=== PATIENT | male | born 1965 | race African-American/Black ===

== ENCOUNTER 2024-09-06 10:44 | Outpatient (REF) | payer MEDICAID, SELFPAY ==
[2024-09-06 13:13] LABS: MANUAL DIFF FLAG NO
[2024-09-06 13:17] LABS: Basophils Percent Auto 0.5 % (0-2); Eosinophils Absolute Auto 0.4 X10*3/uL (0.0-0.4); Eosinophils Percent Auto 5.2 % (0-4); Hematocrit 40.3 % (42.0-52.0); Hemoglobin 12.1 g/dl (14.0-18.0); Imm Gran Abs Auto 0.06 X10*3/uL (0.00-0.03); Imm Gran Pct Auto 0.8 % (0.0-0.4); Lymphocytes Absolute Auto 1.6 X10*3/uL (1.2-4.9); Lymphocytes Percent Auto 20.8 % (20-40); Mean Corpuscular Hemoglobin 23.4 pg (27.0-33.0); Mean Corpuscular Volume 78.1 fL (80.0-98.0); Mean Platelet Volume 9.4 fL (9.4-12.4); Monocytes Absolute Auto 0.8 X10*3/uL (0.1-1.2); Monocytes Percent Auto 9.5 % (2-11); Neutrophils Percent Auto 63.2 % (45-73); Platelet Count 314 X10*3/uL (160-400); Red Blood Count 5.16 X10*6/uL (4.60-5.80); Red Cell Distribution Width 16.1 % (11.0-16.0); White Blood Count 7.9 X10*3/uL (4.8-10.8)
[2024-09-06 13:33] LABS: Estimated Average Glucose 143 mg/dL; Hemoglobin A1C 151.3804 umol/L; Hemoglobin A1c % 6.6 % (<6.0); Total Hemoglobin (HGBA1C) 3091.0623 umol/L
[2024-09-06 13:49] LABS: Alanine Aminotransferase 26 U/L (0-40); Albumin Level 4.3 g/dL (3.5-5.0); Alkaline Phosphatase 78 U/L (39-117); Anion Gap 10 (12-20); Aspartate Amino Transferase 27 U/L (5-37); Bilirubin Total 0.4 mg/dL (0.0-1.0); Blood Urea Nitrogen 14 mg/dL (9-16); Calcium 9.5 mg/dL (8.4-10.2); Carbon Dioxide 32 mmol/L (22-29); Chloride 104 mmol/L (96-108); Cholesterol 88 mg/dL (<200); Estimated Glomerular Filt Rate > 60; Glucose Random 114 mg/dL (60-115); HDL Cholesterol 31 mg/dL (>40); LDL Cholesterol Calculated 44 mg/dL (<100); Potassium 4.2 mmol/L (3.3-5.1); Sodium 142 mmol/L (135-145); Total Protein 8.1 g/dL (6.5-8.0); Triglycerides 65 mg/dL (<150)
[2024-09-06 14:03] LABS: Creatinine Urine 240.18 mg/dL
[2024-09-06 14:11] LABS: Ferritin 71 ng/mL (20-250)
== END 2024-09-06 10:45 | disposition home or self-care (01) ==
LOC: HO.10HDL 10:44
PROVIDERS: Visit Provider Internal Medicine
DX: Z00.01 Encounter for general adult medical examination with abnormal findings (principal); D50.8 Other iron deficiency anemias; E11.9 Type 2 diabetes mellitus without complications; E78.00 Pure hypercholesterolemia, unspecified; G47.33 Obstructive sleep apnea (adult) (pediatric); G89.29 Other chronic pain; L97.909 Non-pressure chronic ulcer of unspecified part of unspecified lower leg with unspecified severity
CPT/HCPCS: 36415; 80053; 80061; 82043; 82570; 82728; 83036; 84153; 85025

== ENCOUNTER 2024-12-06 10:07 | Outpatient (REF) | payer MEDICAID, SELFPAY ==
--- OUTSIDE RECORDS SUMMARY | 2024-12-06 11:29 | XMS_ITS ---
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 ([facility] V24, [facility] V28) 11/09/2024 Non-pressure chronic ulcer o f other part of left lower leg with fat layer exposed ([facility] V24, [facility] V28) 11/09/2024 Chronic venous hypertension (idiopathic) with ulcer of bilateral lower extremity (CODE) ([facility] V24, [facility] V28) 10/12/2024 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 10/13/2024 Goals Goal Patient Goal Type Associated Problems Recent Progress Patient-Stated? Author Decrease Wound Volume by X% by date (in notes) Care Plan Impaired Tissue Improving(03/2025 2:19 PM EDT) No Abiola Richter RN Patient and Caregiver Understand Wound Care Education Care Plan Impaired Tissue On track(04/08/2 025 2:19 PM EDT) Abiola Menendez RN Wound volume breakdown reduced by X% by week 4 Care Plan Impaired Tissue Abiola Menendez RN Wound volume breakdown reduced by X% by week 8 Care Plan Impaired Tissue Abiola Menendez RN Wound volume breakdown reduced by X% by week 12 Care Plan Impaired Tissue Abiola Menendez RN Quit using tobacco (cigarettes, smokeless, etc) Care Plan Education needed on impact of smoking on wound Abiola Menendez RN Reduce tobacco use (cigarettes, smokeless, etc) Care Plan Education needed on impact of smoking on wound Abiola Menendez RN Decrease Wound Volume by X% by date (in notes) Care Plan Education needed on impact of smoking on wound Abiola Menendez RN Patient and Caregiver Understand Wound Care Education Care Plan Education needed related to ulceration/compr omised skin integrity. Abiola Menendez RN Interventions Care Plan Interventions Intervention Entry Date Outcome Provide caregiver with wound care procedure information 10/13/2024 Educate caregiver on proper wound care procedures 10/13/2024 Give provider list of wound care supplies 10/13/2024 Refill wound care supplies 10/13/2024 Send Wound Care Supplies 10/13/2024 Give provider list of wound care supplies 10/13/2024 Refill wound care supplies 10/13/2024 Send Wound Care Supplies 10/13/2024 Provide caregiver with wound care procedure information 10/13/2024 Educate caregiver on proper wound care procedures 10/13/2024 Document patient eligibility for HBO 10/13/2024 Assess patient for HBO treatment 10/13/2024 Record wound depth 10/13/2024 Record total wound area 10/13/2024 Measure wound progress 10/13/2024 Create an action plan identifying patient strengths and supports 10/13/2024 Establish quit date with patient 10/13/2024 Discuss prior cessation attempts 10/13/2024 Discuss preferred method of cessation and plan 10/13/2024 Discuss barriers to smoking cessation 10/13/2024 Discuss smoking status with patient 10/13/2024 Create an action plan identifying patient strengths and supports 10/13/2024 Establish quit date with patient 10/13/2024 Discuss prior cessation attempts 10/13/2024 Discuss preferred method of cessation and plan 10/13/2024 Discuss barriers to smoking cessation 10/13/2024 Discuss smoking status with patient 10/13/2024 Provide caregiver with wound care procedure information 10/13/2024 Educate caregiver on proper wound care procedures 10/13/2024 Document patient eligibility for HBO 10/13/2024 Assess patient for HBO treatment 10/13/2024 Record wound depth 10/13/2024 Record total wound area 10/13/2024 Measure wound progress 10/13/2024 Provide caregiver with wound care procedure information 10/13/2024 Educate caregiver on proper wound care procedures 10/13/2024 Document patient eligibility for HBO 10/13/2024 Assess patient for HBO treatment 10/13/2024 Record wound depth 10/13/2024 Record total wound area 10/13/2024 Measure wound progress 10/13/2024 Provide caregiver with wound care procedure information 10/13/2024 Educate caregiver on proper wound care procedures 10/13/2024 Document patient eligibility for HBO 10/13/2024 Assess patient for HBO treatment 10/13/2024 Record wound depth 10/13/2024 Record total wound area 10/13/2024 Measure wound progress 10/13/2024 Provide caregiver with wound care procedure information 10/13/2024 Educate caregiver on proper wound care procedures 10/13/2024 Give provider list of wound care supplies 10/13/2024 Refill wound care supplies 10/13/2024 Give provider list of wound care supplies 10/13/2024 Refill wound care supplies 10/13/2024 Provide caregiver with wound care procedure information 10/13/2024 Educate caregiver on proper wound care procedures 10/13/2024 Record wound depth 10/13/2024 Record total wound area 10/13/2024 Measure wound progress 10/13/2024 Related Goals and Interventions Goal Associated Intervent ions Decrease Wound Volume by X% by date (in notes) Give provider list of wound care supplie s; Refill wound care supplies; Provide caregiver with wound care procedure information; Educate caregiver on proper wound care procedures; Record wound depth; Record total wound area; Measure wound progress Patient and Caregiver Unders tand Wound Care Education Provide caregiver with wound care proced ure information; Educate caregiver on proper wound care procedures; Give provider list of wound care supplies; Refill wound care supplies Wound volume breakdown reduc ed by X% by week 4 Provide caregiver with wound care proced ure information; Educate caregiver on proper wound care procedures; Document patient eligibility for HBO; Assess patient for HBO treatment; Record wound depth; Record total wound area; Measure wound progress Wound volume breakdown reduc ed by X% by week 8 Provide caregiver with wound care proced ure information; Educate caregiver on proper wound care procedures; Document patient eligibility for HBO; Assess patient for HBO treatment; Record wound depth; Record total wound area; Measure wound progress Wound volume breakdown reduc ed by X% by week 12 Provide caregiver with wound care proced ure information; Educate caregiver on proper wound care procedures; Document patient eligibility for HBO; Assess patient for HBO treatment; Record wound depth; Record total wound area; Measure wound progress Quit using tobacco (cigarett es, smokeless, etc) Create an action plan identifying patien t strengths and supports; Establish quit date with patient; Discuss prior cessation attempts; Discuss preferred method of cessation and plan; Discuss barriers to smoking cessation; Discuss smoking status with patient Reduce tobacco use (cigarett es, smokeless, etc) Create an action plan identifying patien t strengths and supports; Establish quit date with patient; Discuss prior cessation attempts; Discuss preferred method of cessation and plan; Discuss barriers to smoking cessation; Discuss smoking status with patient Decrease Wound Volume by X% by date (in notes) Give provider list of wound care supplie s; Refill wound care supplies; Send Wound Care Supplies; Provide caregiver with wound care procedure information; Educate caregiver on proper wound care procedures; Document patient eligibility for HBO; Assess patient for HBO treatment; Record wound depth; Record total wound area; Measure wound progress Patient and Caregiver Unders tand Wound Care Education Provide caregiver with wound care proced ure information; Educate caregiver on proper wound care procedures; Give provider list of wound care supplies; Refill wound care supplies; Send Wound Care Supplies
--- OUTSIDE RECORDS SUMMARY | 2024-12-06 11:29 | XMS_ITS | Clinical Summary ---
Author Organization [address] [place] [address] Address [address] [place] [address] Phone Care Team Providers Care Tack Driller Name Role Phone Kavya Mckenzie MD Primary Care Provider [phone] Allergies Active Allergy Reactions Criticality Noted Date Comments Penicillins Itching,Rash 10/12/2024 Shellfish Derived Anaphylaxis High 10/12/2024 Medications acetaminophen (TYLENOL) 325 mg tablet Take 1 tablet (325 mg total) by mouth every 6 (six) hours if needed for mild pain. Active albuterol HFA (PROAIR HFA ; PROVENTIL HFA ; VENTOLIN HFA) 90 mcg/actuation inhaler Inhale 2 puffs by mouth every 6 (six) hours if needed for wheezing. Active amitriptyline (ELAVIL) 100 mg tablet Take by mouth at bedtime. Active atorvastatin (LIPITOR) 80 mg tablet Take 1 tablet (80 mg total) by mouth at bedtime. Active amitriptyline (ELAVIL) 25 mg tablet Take by mouth at bedtime. Active budesonide-form oteroL (SYMBICORT) 80-4.5 mcg/actuation inhaler Inhale 2 puffs by mouth 2 (two) times a day. Rinse mouth with water after use to reduce aftertaste and incidence of candidiasis. Do not swallow. Active celecoxib (CeleBREX) 200 mg capsule Take 1 capsule (200 mg total) by mouth 2 (two) times a day. Active cetaphil (CETAPHIL) cream Apply topically if needed for dry skin. Active cetirizine (ZyrTEC) 10 mg chewable tablet Chew 1 (one) time each day. Active furosemide (LASIX) 40 mg tablet Take 1 tablet (40 mg total) by mouth 2 (two) times a day. Active hydrALAZINE (APRESOLINE) 50 mg tablet Take 1 tablet (50 mg total) by mouth 3 (three) times a day. Active empagliflozin (Jardiance) 10 mg tablet Take 1 tablet (10 mg total) by mouth 1 (one) time each day. Active lactulose (CHRONULAC) solution Take 15 mL (10 g total) by mouth if needed for constipation. Active insulin glargine (LANTUS) 100 unit/mL injection Inject 15 Units under the skin 1 (one) time each day in the morning. Active losartan (COZAAR) 100 mg tablet Take 1 tablet (100 mg total) by mouth 1 (one) time each day. Active metFORMIN (GLUCOPHAGE) 1,000 mg tablet Take 1 tablet (1,000 mg total) by mouth 2 (two) times a day with meals. Active metoprolol tartrate (LOPRESSOR) 100 mg tablet Take 1 tablet (100 mg total) by mouth 1 (one) time each day. Active montelukast (SINGULAIR) 10 mg tablet Take 1 tablet (10 mg total) by mouth 1 (one) time each day. Active MORPHINE SULFATE ER PO Take 30 mg by mouth if needed (pain, as needed 2 tablets twice per day). Active tirzepatide (Mounjaro) 5 mg/0.5 mL injection Inject 0.5 mL (5 mg total) under the skin every 7 (seven) days. Active omeprazole (PriLOSEC) [address] capsule Take 2 capsules (20 mg total) by mouth 2 (two) times a day. Do not crush or chew. Active oxyCODONE (ROXICODONE) 10 mg immediate release tablet Take 1 tablet (10 mg total) by mouth if needed for severe pain (as needed BID). Active ascorbic acid (VITAMIN C) 500 mg CR capsule Take 1 capsule (500 mg total) by mouth 1 (one) time each day. Active cholecalciferol (VITAMIN D-3) 25 mcg (1,000 unit) tablet Take 1 tablet (1,000 Units total) by mouth 1 (one) time each day. Active Active Problems Problem Noted Date Diagnosed Date Non-pressure chronic ulcer o f other part of right lower leg with fat layer exposed (CMS/[facility] V24, CMS/[facility] V28) 11/09/2024 Non-pressure chronic ulcer o f other part of left lower leg with fat layer exposed (CMS/HCC V24, CMS/HCC V28) 11/09/2024 Chronic venous hypertension (idiopathic) with ulcer of bilateral lower extremity (CODE) (CMS/HCC V24, CMS/HCC V28) 10/12/2024 Non-pressure chronic ulcer o f right lower leg with fat layer exposed (CMS/HCC V24, CMS/HCC V28) 10/12/2024 Non-pressure chronic ulcer o f left lower leg with fat layer exposed (CMS/HCC V24, CMS/HCC V28) 10/12/2024 Type 2 diabetes mellitus wit h other skin ulcer (CODE) (CMS/HCC V24, CMS/HCC V28) 10/12/2024 Sarcoidosis Encounters Date Type Department Care Team Description 11/30/2024 2:45 PM EDT Office Visit [facility] [address] [place] [phone] Cy Hernández PA Chronic venous hypertension (idiopathic) with ulcer of bilateral lower extremity (CODE) (CMS/HCC V24, CMS/[facility] V28) (Primary Dx); Non-pressure chronic ulcer of other part of left lower leg with fat layer exposed (CMS/HCC V24, CMS/HCC V28); Non-pressure chronic ulcer of other part of right lower leg limited to breakdown of skin (CMS/HCC V24, CMS/HCC V28); Type 2 diabetes mellitus with other skin ulcer (CODE) (CMS/HCC V24, CMS/HCC V28) 11/23/2024 2:15 PM EDT Office Visit [facility] [address] [place] [phone] Cy Hernández PA Chronic venous hypertension (idiopathic) with ulcer of bilateral lower extremity (CODE) (CMS/HCC V24, CMS/HCC V28) (Primary Dx); Non-pressure chronic ulcer of other part of right lower leg with fat layer exposed (CMS/HCC V24, CMS/HCC V28); Non-pressure chronic ulcer of other part of left lower leg with fat layer exposed (CMS/HCC V24, CMS/HCC V28); Type 2 diabetes mellitus with other skin ulcer (CODE) (CMS/HCC V24, CMS/HCC V28) 11/16/2024 2:30 PM EDT Office Visit [facility] [address] [place] [phone] Cy Hrenández PA Chronic venous hypertension (idiopathic) with ulcer of bilateral lower extremity (CODE) (CMS/HCC V24, CMS/HCC V28) (Primary Dx); Non-pressure chronic ulcer of other part of right lower leg with fat layer exposed (CMS/HCC V24, CMS/HCC V28); Non-pressure chronic ulcer of other part of left lower leg with fat layer exposed (CMS/HCC V24, CMS/HCC V28); Type 2 diabetes mellitus with other skin ulcer (CODE) (CMS/HCC V24, CMS/HCC V28) 11/09/2024 2:45 PM EDT Office Visit [facility] [address] [place] [phone] Cy Hernández PA Chronic venous hypertension (idiopathic) with ulcer of bilateral lower extremity (CODE) (CMS/HCC V24, CMS/HCC V28) (Primary Dx); Non-pressure chronic ulcer of other part of right lower leg with fat layer exposed (CMS/HCC V24, CMS/HCC V28); Non-pressure chronic ulcer of other part of left lower leg with fat layer exposed (CMS/HCC V24, CMS/HCC V28); Type 2 diabetes mellitus with other skin ulcer (CODE) (CMS/HCC V24, CMS/HCC V28) 11/02/2024 2:30 PM EDT Office Visit [facility] [address] [place] [address] [phone] Cy Hernández PA Chronic venous hypertension (idiopathic) with ulcer of bilateral lower extremity (CODE) (CMS/HCC V24, CMS/HCC V28) (Primary Dx); Non-pressure chronic ulcer of other part of right lower leg with fat layer exposed (CMS/HCC V24, CMS/HCC V28); Non-pressure chronic ulcer of other part of left lower leg with fat layer exposed (CMS/HCC V24, CMS/HCC V28); Type 2 diabetes mellitus with other skin ulcer (CODE) (CMS/HCC V24, CMS/HCC V28) 10/19/2024 1:15 PM EST Office Visit [facility] [address] [place] [phone] Cy Hernández PA Chronic venous hypertension (idiopathic) with ulcer of bilateral lower extremity (CODE) ([facility] V24, [facility] V28) (Primary Dx); Non-pressure chronic ulcer of right lower leg with fat layer exposed ([facility] V24, [facility] V28); Non-pressure chronic ulcer of left lower leg with fat layer exposed ([facility] V24, [facility] V28); Type 2 diabetes mellitus with other skin ulcer (CODE) ([facility] V24, [facility] V28) 10/14/2024 12:50 PM EST - 10/14/2024 11:59 PM EST Hospital Encounter [facility] [address] [place] [phone] Polyosteoarthritis, unspecified Discharge Disposition: Home or Self Care 10/14/[address] [facility] [address] [place] [phone] Essie Schultz LPN start of [facility] services 10/12/2024 12:45 PM EST Office Visit [facility] [address] [place] [phone] Cy Hernández PA Chronic venous hypertension (idiopathic) with ulcer of bilateral lower extremity (CODE) ([facility] V24, [facility] V28) (Primary Dx); Non-pressure chronic ulcer of right lower leg with fat layer exposed ([facility] V24, [facility] V28); Non-pressure chronic ulcer of left lower leg with fat layer exposed ([facility] V24, [facility] V28); Type 2 diabetes mellitus with other skin ulcer (CODE) ([facility] V24, [facility] V28) from Last 3 Months Surgical History Surgery Date Site/Laterality Comments TOTAL KNEE ARTHROPLASTY Left BACK SURGERY Medical History Medical History Date Comments Asthma Diabetes mellitus ([facility] V24, [facility] V28) Hypertension Arthritis Sarcoidosis Hyperlipidemia Anemia DEANGELO (obstructive sleep apnea) Venous hypertension of both lower extremities GERD (gastroesophageal reflux disease) Cellulitis Edema Back pain Family History Medical History Relation Name Comments Diabetes Daughter Diabetes Maternal Grandmother Cancer Mother Cancer Sister Relation Name Status Comments Daughter Maternal Grandmother Mother Sister Social History Tobacco Use Types Packs/Day Years Used Date Smoking Tobacco: Former Cigarettes S tarted: 1996 Smokeless Tobacco: Never Tobacco Cessation:Counseling Given: Not Answered Alcohol Use Standard Drinks/Week Comments Yes 0 (1 standard drink = 0.6 oz pur e alcohol) social gaterings / holidays Sex and Gender Information Value Date Recorded Sex Assigned at Not on file Legal Sex Male 3:53 PM EST Gender Identity Not on file Sexual Orientation Not on file Obstetrics History Last Filed Vital Signs Vital Sign Reading Time Taken Comments Blood Pressure 161/91 11/30/2024 2:23 PM EDT Pulse 104 11/30/2024 2:23 PM EDT Temperature 36.1 ??C (96.9 ??F) 11/30/2024 2:03 PM ED T Respiratory Rate 20 11/30/2024 2:23 PM EDT Oxygen Saturation 98% 11/30/2024 2:23 PM EDT Inhaled Oxygen Concentration - - Weight 136 kg (300 lb) 10/12/2024 1:11 PM EST Height 185.4 cm (6' 1 ) 10/12/2024 1:11 PM EST Body Mass Index 39.58 10/12/2024 1:11 PM EST Plan of Treatment Upcoming Encounters Date Type Department Care Team (Late st Contact Info) Description 12/07/2024 2:45 PM EDT Clinical Support [facility] [address] [place] [phone] 01/03/2025 2:30 PM EDT Office Visit [facility] [place] [address] [place] [address] [phone] Jef Mcclendon MD [address] [facility] [address] [place] [address] Health Maintenance Due Date Last Done Comments Diabetes: Annual GFR (Glomerular Filtration Rate) 1967 Diabetes: Annual Foot Exam 1977 Diabetes: Annual Retina Eye Exam 1977 Hepatitis B Vaccines (1 of 3 - 19+ 3-dose series) 1986 Pneumococcal Vaccine: 50+ Years (2 of 2 - PCV) 05/30/2021 05/30/2020 Pneumococcal Vaccine: Pediatrics (0 to 5 Years) and At-Risk Patients (6 to 64 Years) (2 of 2 - PCV) 05/30/2021 05/30/2020 COVID-19 Vaccine (6 - season) 2024 07/04/2022, 12/26/2021, 08/13/2021, Additional history exists Cholesterol Screening (Lipid Panel) 09/07/2024 Colorectal Cancer Screening: Colonoscopy 09/07/2024 HIV Screening 09/07/2024 Hepatitis C Screening 09/07/2024 Social Influencers of Health Screening 09/07/2024 Diabetes: Annual Urine Albumin-Creatinine Ratio (uACR) 10/12/2024 Diabetes: Blood Sugar Control Test (HGBA1C) 10/12/2024 Influenza Vaccine (Season Ended) 2025 Depression Screening 10/12/2025 10/12/2024 DTaP,Tdap,and Td Vaccines (3 - Td or Tdap) 09/07/2034 09/07/2024, 01/10/2020 Zoster Vaccines Completed 09/25/2021, 07/20/2021 HIB Vaccines Aged Out No longer eligi ble based on patient's age to complete this topic HPV Vaccines Aged Out No longer eligi ble based on patient's age to complete this topic Hepatitis A Vaccines Aged Out No long er eligible based on patient's age to complete this topic IPV Vaccines Aged Out No longer eligi ble based on patient's age to complete this topic MMR Vaccines Aged Out No longer eligi ble based on patient's age to complete this topic Meningococcal ACWY Vaccine Aged Out N o longer eligible based on patient's age to complete this topic Meningococcal B Vaccine Aged Out No l onger eligible based on patient's age to complete this topic RSV Immunization Patients Under 20 months Aged Out No longer eligible based on patient's age to complete this topic Varicella Vaccines Aged Out No longer eligible based on patient's age to complete this topic Goals Goal Patient Goal Type Associated Problems Recent Progress Patient-Stated? Author Decrease Wound Volume by X% by date (in notes) Care Plan Impaired Tissue Improving(03/2025 2:19 PM EDT) No Abiola Richter RN Patient and Caregiver Understand Wound Care Education Care Plan Impaired Tissue On track( 025 2:19 PM EDT) Abiola Menendez RN [...] ulceration/compr omised skin integrity. Abiola Menendez RN Procedures Procedure Name Priority Date/Time Associated Diagnosis Comments DEBRIDEMENT Routine 11/30/2024 2:45 PM EDT Chronic venous hypertension (idiopathic) with ulcer of bilateral lower extremity (CODE) (CMS/HCC V24, CMS/HCC V28) Non-pressure chronic ulcer of other part of left lower leg with fat layer exposed (CMS/HCC V24, CMS/HCC V28) WOUND CARE PROCEDURE Routine 11/30/2024 2:16 PM EDT Chronic venous hypertension (idiopathic) with ulcer of bilateral lower extremity (CODE) (CMS/HCC V24, CMS/HCC V28) Non-pressure chronic ulcer of other part of left lower leg with fat layer exposed (CMS/HCC V24, CMS/HCC V28) WOUND CARE PROCEDURE Routine 11/23/2024 2:32 PM EDT Chronic venous hypertension (idiopathic) with ulcer of bilateral lower extremity (CODE) (CMS/HCC V24, CMS/HCC V28) Non-pressure chronic ulcer of other part of left lower leg with fat layer exposed (CMS/HCC V24, CMS/HCC V28) WOUND CARE PROCEDURE Routine 11/23/2024 2:31 PM EDT Chronic venous hypertension (idiopathic) with ulcer of bilateral lower extremity (CODE) (CMS/HCC V24, CMS/HCC V28) Non-pressure chronic ulcer of other part of right lower leg with fat layer exposed (CMS/HCC V24, CMS/HCC V28) DEBRIDEMENT Routine 11/23/2024 2:15 PM EDT Chronic venous hypertension (idiopathic) with ulcer of bilateral lower extremity (CODE) (CMS/HCC V24, CMS/HCC V28) Non-pressure chronic ulcer of other part of right lower leg with fat layer exposed (CMS/HCC V24, CMS/HCC V28) DEBRIDEMENT Routine 11/23/2024 2:15 PM EDT Chronic venous hypertension (idiopathic) with ulcer of bilateral lower extremity (CODE) (CMS/HCC V24, CMS/HCC V28) Non-pressure chronic ulcer of other part of left lower leg with fat layer exposed (CMS/HCC V24, CMS/HCC V28) WOUND CARE PROCEDURE Routine 11/16/2024 3:15 PM EDT Chronic venous hypertension (idiopathic) with ulcer of bilateral lower extremity (CODE) (CMS/HCC V24, CMS/HCC V28) Non-pressure chronic ulcer of other part of left lower leg with fat layer exposed (CMS/HCC V24, CMS/HCC V28) WOUND CARE PROCEDURE Routine 11/16/2024 3:15 PM EDT Chronic venous hypertension (idiopathic) with ulcer of bilateral lower extremity (CODE) (CMS/HCC V24, CMS/HCC V28) Non-pressure chronic ulcer of other part of right lower leg with fat layer exposed (CMS/HCC V24, CMS/HCC V28) DEBRIDEMENT Routine 11/16/2024 2:30 PM EDT Chronic venous hypertension (idiopathic) with ulcer of bilateral lower extremity (CODE) (CMS/HCC V24, CMS/HCC V28) Non-pressure chronic ulcer of other part of right lower leg with fat layer exposed (CMS/HCC V24, CMS/HCC V28) DEBRIDEMENT Routine 11/16/2024 2:30 PM EDT Chronic venous hypertension (idiopathic) with ulcer of bilateral lower extremity (CODE) (CMS/HCC V24, CMS/HCC V28) Non-pressure chronic ulcer of other part of left lower leg with fat layer exposed (CMS/HCC V24, CMS/HCC V28) WOUND CARE PROCEDURE Routine 11/09/2024 3:23 PM EDT Chronic venous hypertension (idiopathic) with ulcer of bilateral lower extremity (CODE) (CMS/HCC V24, CMS/HCC V28) Non-pressure chronic ulcer of other part of left lower leg with fat layer exposed (CMS/HCC V24, CMS/HCC V28) WOUND CARE PROCEDURE Routine 11/09/2024 3:22 PM EDT Chronic venous hypertension (idiopathic) with ulcer of bilateral lower extremity (CODE) (CMS/HCC V24, CMS/HCC V28) Non-pressure chronic ulcer of other part of right lower leg with fat layer exposed (CMS/HCC V24, CMS/HCC V28) DEBRIDEMENT Routine 11/09/2024 2:45 PM EDT Chronic venous hypertension (idiopathic) with ulcer of bilateral lower extremity (CODE) (CMS/HCC V24, CMS/HCC V28) Non-pressure chronic ulcer of other part of right lower leg with fat layer exposed (CMS/HCC V24, CMS/HCC V28) DEBRIDEMENT Routine 11/09/2024 2:45 PM EDT Chronic venous hypertension (idiopathic) with ulcer of bilateral lower extremity (CODE) (CMS/HCC V24, CMS/HCC V28) Non-pressure chronic ulcer of other part of left lower leg with fat layer exposed (CMS/HCC V24, CMS/HCC V28) DEBRIDEMENT Routine 11/02/2024 2:30 PM EDT Chronic venous hypertension (idiopathic) with ulcer of bilateral lower extremity (CODE) (CMS/HCC V24, CMS/HCC V28) Non-pressure chronic ulcer of other part of right lower leg with fat layer exposed (CMS/HCC V24, CMS/HCC V28) DEBRIDEMENT Routine 11/02/2024 2:30 PM EDT Chronic venous hypertension (idiopathic) with ulcer of bilateral lower extremity (CODE) (CMS/HCC V24, CMS/HCC V28) Non-pressure chronic ulcer of other part of left lower leg with fat layer exposed (CMS/HCC V24, CMS/HCC V28) WOUND CARE PROCEDURE Routine 11/02/2024 2:26 PM EDT Chronic venous hypertension (idiopathic) with ulcer of bilateral lower extremity (CODE) (CMS/HCC V24, CMS/HCC V28) Non-pressure chronic ulcer of other part of left lower leg with fat layer exposed (CMS/HCC V24, CMS/HCC V28) WOUND CARE PROCEDURE Routine 11/02/2024 2:25 PM EDT Chronic venous hypertension (idiopathic) with ulcer of bilateral lower extremity (CODE) (CMS/HCC V24, CMS/HCC V28) Non-pressure chronic ulcer of other part of right lower leg with fat layer exposed (CMS/HCC V24, CMS/HCC V28) WOUND CARE PROCEDURE Routine 10/19/2024 2:02 PM EST Chronic venous hypertension (idiopathic) with ulcer of bilateral lower extremity (CODE) (CMS/HCC V24, CMS/HCC V28) Non-pressure chronic ulcer of left lower leg with fat layer exposed (CMS/HCC V24, CMS/HCC V28) Type 2 diabetes mellitus with other skin ulcer (CODE) (CMS/HCC V24, CMS/HCC V28) WOUND CARE PROCEDURE Routine 10/19/2024 2:02 PM EST Chronic venous hypertension (idiopathic) with ulcer of bilateral lower extremity (CODE) (CMS/HCC V24, CMS/HCC V28) Non-pressure chronic ulcer of right lower leg with fat layer exposed (CMS/HCC V24, CMS/HCC V28) Type 2 diabetes mellitus with other skin ulcer (CODE) (CMS/HCC V24, CMS/HCC V28) DEBRIDEMENT Routine 10/19/2024 1:15 PM EST Chronic venous hypertension (idiopathic) with ulcer of bilateral lower extremity (CODE) (CMS/HCC V24, CMS/HCC V28) Non-pressure chronic ulcer of right lower leg with fat layer exposed (CMS/HCC V24, CMS/HCC V28) Type 2 diabetes mellitus with other skin ulcer (CODE) (CMS/HCC V24, CMS/HCC V28) DEBRIDEMENT Routine 10/19/2024 1:15 PM EST Chronic venous hypertension (idiopathic) with ulcer of bilateral lower extremity (CODE) (CMS/HCC V24, CMS/HCC V28) Non-pressure chronic ulcer of left lower leg with fat layer exposed (CMS/HCC V24, CMS/HCC V28) Type 2 diabetes mellitus with other skin ulcer (CODE) (CMS/HCC V24, CMS/HCC V28) XR HIP 2-3 VIEWS RIGHT Routine 10/14/2024 1:07 PM EST Polyosteoarthritis, unspecified WOUND CARE PROCEDURE Routine 10/12/2024 2:32 PM EST Chronic venous hypertension (idiopathic) with ulcer of bilateral lower extremity (CODE) (CMS/HCC V24, CMS/HCC V28) Non-pressure chronic ulcer of left lower leg with fat layer exposed (CMS/HCC V24, CMS/HCC V28) WOUND CARE PROCEDURE Routine 10/12/2024 2:32 PM EST Chronic venous hypertension (idiopathic) with ulcer of bilateral lower extremity (CODE) (CMS/HCC V24, CMS/HCC V28) Non-pressure chronic ulcer of right lower leg with fat layer exposed (CMS/HCC V24, CMS/HCC V28) CULTURE WOUND WITH GRAM STAIN Routine 10/12/2024 2:28 PM EST Chronic venous hypertension (idiopathic) with ulcer of bilateral lower extremity (CODE) (CMS/HCC V24, CMS/HCC V28) Non-pressure chronic ulcer of right lower leg with fat layer exposed (CMS/HCC V24, CMS/HCC V28) DEBRIDEMENT Routine 10/12/2024 12:45 PM EST Chronic venous hypertension (idiopathic) with ulcer of bilateral lower extremity (CODE) (CMS/HCC V24, CMS/HCC V28) Non-pressure chronic ulcer of right lower leg with fat layer exposed (CMS/HCC V24, CMS/HCC V28) DEBRIDEMENT Routine 10/12/2024 12:45 PM EST Chronic venous hypertension (idiopathic) with ulcer of bilateral lower extremity (CODE) (CMS/HCC V24, CMS/HCC V28) Non-pressure chronic ulcer of right lower leg with fat layer exposed (CMS/HCC V24, CMS/HCC V28) DEBRIDEMENT Routine 10/12/2024 12:45 PM EST Chronic venous hypertension (idiopathic) with ulcer of bilateral lower extremity (CODE) (CMS/HCC V24, CMS/HCC V28) Non-pressure chronic ulcer of left lower leg with fat layer exposed (CMS/HCC V24, CMS/HCC V28) from Last 3 Months Results * Debridement Venous Ulcer Left;Lateral;Lower Leg (11/30/2024 2:45 PM EDT) Narrative Angelo Wallace MD - 11/30/2024 2:45 PM EDT FIDELIA Prater ? 11/30/2024 ??2:23 PM Debridement Venous Ulcer Left;Lateral;Lower Leg Performed by: FIDELIA Prater Authorized by: FIDELIA Prater ??Associated wounds: Wound Venous Ulcer 10/12/24 Leg Left;Lateral;Lower Consent: ??Consent obtained: ??Verbal ??Consent given by: ??Patient ??Risks discussed: Yes ?? Time out: Immediately prior to the procedure a time out was called ?? Debridement Details: ??Performed by: ??PA ??Type: surgical ?Level: subcutaneous tissue ?Pain control: ??Lidocaine 4% ??Severity of Tissue Pre Debridement: ??Fat layer exposed ??Severity of Tissue Post Debridement: ??Fat layer exposed ??Time taken: ??11/30/2024 1:58 PM ??Length (cm): ??4.2 ??Width (cm): ??4 ??Depth (cm): ??0.1 ??Area (cm^2): ??16.8 ??Time taken: ??11/30/2024 1:59 PM ??Length (cm): ??4.2 ??Width (cm): ??4 ??Depth (cm): ??0.1 ??Percent Debrided (%): ??100 ??Surface Area (cm^2): ??16.8 ??Area Debrided (cm^2): ??16.8 ??Volume (cm^3): ??1.68 ??Tissue and other material debrided: dermis, epidermis and subcutaneous tissue ?Devitalized tissue debrided: biofilm, exudate, fibrin and slough ?Instrument: ??Curette ??Amount of bleeding: small ?Hemostasis obtained with: ??Pressure ??Procedural pain: ??0 ??Post-procedural pain: ??0 ??Response to treatment: ??Procedure was tolerated well us Cy MISTRY IN CLINIC/BEDSIDE ORDERABLE S Final Result * Wound Care Procedure Venous Ulcer Left;Lateral;Lower Leg (11/30/2024 2:16 PM EDT) Narrative Angelo Wallace MD - 11/30/2024 2:16 PM EDT FIDELIA Prater ? 11/30/2024 ??2:23 PM Wound Care Procedure Venous Ulcer Left;Lateral;Lower Leg Date/Time: 11/30/2024 2:16 PM Performed by: Era Cavazos RN Authorized by: FIDELIA Prater ??Associated wounds: Wound Venous Ulcer 10/12/24 Leg Left;Lateral;Lower Consent: ??Consent obtained: ??Verbal ??Consent given by: ??Patient ??Risks, benefits, and alternatives were discussed: yes ?Risks discussed: ??Infection and pain ??Alternatives discussed: ??Delayed treatment [place] protocol: ??Procedure explained and questions answered to patient or proxy's satisfaction: yes ?Relevant documents present and verified: yes ?Patient identity confirmed: ??Verbally with patient Sedation: ??Sedation type: ??None Anesthesia: ??Anesthesia method: ??None Procedure details: ??Indications: open wounds ?Wound location: ??Leg ??Leg location: ??L lower leg ??Wound age (days): ??>14 Dressing: ??Dressing: Coban 2 compression system. Post-procedure details: ??Procedure completion: ??Tolerated us Cy MISTRY IN CLINIC/BEDSIDE ORDERABLE S Final Result * Wound Care Procedure Venous Ulcer Left;Lateral;Lower Leg (11/23/2024 2:32 PM EDT) Narrative Angelo Wallace MD - 11/23/2024 2:32 PM EDT FIDELIA Prater ? 11/23/2024 ??2:45 PM Wound Care Procedure Venous Ulcer Left;Lateral;Lower Leg Date/Time: 11/23/2024 2:32 PM Performed by: Era Cavazos RN Authorized by: FIDELIA Prater ??Associated wounds: Wound Venous Ulcer 10/12/24 Leg Left;Lateral;Lower Consent: ??Consent obtained: ??Verbal ??Consent given by: ??Patient ??Risks, benefits, and alternatives were discussed: yes ?Risks discussed: ??Infection and pain ??Alternatives discussed: ??Delayed treatment [place] protocol: ??Procedure explained and questions answered to patient or proxy's satisfaction: yes ?Relevant documents present and verified: yes ?Patient identity confirmed: ??Verbally with patient Sedation: ??Sedation type: ??None Anesthesia: ??Anesthesia method: ??None Procedure details: ??Indications: open wounds ?Wound location: ??Leg ??Leg location: ??L lower leg ??Wound age (days): ??>14 Dressing: ??Dressing: Coban 2 compression system. Post-procedure details: ??Procedure completion: ??Tolerated us Cy MISTRY IN CLINIC/BEDSIDE ORDERABLE S Final Result * Wound Care Procedure Venous Ulcer (Cluster ) Right;Medial;Lower Leg (11/23/2024 2:31 PM EDT) Narrative Angelo Wallace MD - 11/23/2024 2:31 PM EDT FIDELIA Prater ? 11/23/2024 ??2:45 PM Wound Care Procedure Venous Ulcer (Cluster ) Right;Medial;Lower Leg Date/Time: 11/23/2024 2:31 PM Performed by: Era Cavazos RN Authorized by: FIDELIA Prater ??Associated wounds: Wound Venous Ulcer 10/12/24 Leg Right;Medial;Lower Consent: ??Consent obtained: ??Verbal ??Consent given by: ??Patient ??Risks, benefits, and alternatives were discussed: yes ?Risks discussed: ??Pain and infection ??Alternatives discussed: ??Delayed treatment [place] protocol: ??Procedure explained and questions answered to patient or proxy's satisfaction: yes ?Relevant documents present and verified: yes ?Test results available: yes ?Patient identity confirmed: ??Verbally with patient Sedation: ??Sedation type: ??None Anesthesia: ??Anesthesia method: ??None Procedure details: ??Indications: open wounds ?Wound location: ??Leg ??Leg location: ??R lower leg ??Wound age (days): ??>14 Dressing: ??Dressing: coban 2 compression system. Post-procedure details: ??Procedure completion: ??Tolerated us Cy MISTRY IN CLINIC/BEDSIDE ORDERABLE S Final Result * Debridement Venous Ulcer (Cluster ) Right;Medial;Lower Leg (11/23/2024 2:15 PM EDT) Narrative Angelo Wallace MD - 11/23/2024 2:15 PM EDT FIDELIA Prater ? 11/23/2024 ??2:45 PM Debridement Venous Ulcer (Cluster ) Right;Medial;Lower Leg Performed by: FIDELIA Prater Authorized by: FIDELIA Prater ??Associated wounds: Wound Venous Ulcer 10/12/24 Leg Right;Medial;Lower Consent: ??Consent obtained: ??Verbal ??Consent given by: ??Patient ??Risks discussed: Yes ?? Time out: Immediately prior to the procedure a time out was called ?? Debridement Details: ??Performed by: ??PA ??Type: surgical ?Level: subcutaneous tissue ?Pain control: ??Lidocaine 4% ??Severity of Tissue Pre Debridement: ??Fat layer exposed ??Severity of Tissue Post Debridement: ??Fat layer exposed ??Time taken: ??11/23/2024 2:16 PM ??Length (cm): ??2.1 (Cluster of 2) ??Width (cm): ??2.2 ??Depth (cm): ??0.1 ??Area (cm^2): ??4.62 ??Time taken: ??11/23/2024 2:17 PM ??Length (cm): ??2.1 ??Width (cm): ??2.2 ??Depth (cm): ??0.1 ??Percent Debrided (%): ??50 ??Surface Area (cm^2): ??4.62 ??Area Debrided (cm^2): ??2.31 ??Volume (cm^3): ??0.46 ??Tissue and other material debrided: dermis, epidermis and subcutaneous tissue ?Devitalized tissue debrided: biofilm and slough ?Instrument: ??Curette ??Amount of bleeding: none ?Hemostasis obtained with: ??Not applicable ??Procedural pain: ??0 ??Post-procedural pain: ??0 ??Response to treatment: ??Procedure was tolerated well us Cy MISTRY IN CLINIC/BEDSIDE ORDERABLE S Final Result * Debridement Venous Ulcer Left;Lateral;Lower Leg (11/23/2024 2:15 PM EDT) Narrative Angelo Wallace MD - 11/23/2024 2:15 PM EDT FIDELIA Prater ? 11/23/2024 ??2:45 PM Debridement Venous Ulcer Left;Lateral;Lower Leg Performed by: FIDELIA Prater Authorized by: FIDELIA Parter ??Associated wounds: Wound Venous Ulcer 10/12/24 Leg Left;Lateral;Lower Consent: ??Consent obtained: ??Verbal ??Consent given by: ??Patient ??Risks discussed: Yes ?? Time out: Immediately prior to the procedure a time out was called ?? Debridement Details: ??Performed by: ??PA ??Type: surgical ?Level: subcutaneous tissue ?Pain control: ??Lidocaine 4% ??Severity of Tissue Pre Debridement: ??Fat layer exposed ??Severity of Tissue Post Debridement: ??Fat layer exposed ??Time taken: ??11/23/2024 2:17 PM ??Length (cm): ??4.6 ??Width (cm): ??3.9 ??Depth (cm): ??0.1 ??Area (cm^2): ??17.94 ??Time taken: ??11/23/2024 2:18 PM ??Length (cm): ??4.6 ??Width (cm): ??3.9 ??Depth (cm): ??0.1 ??Percent Debrided (%): ??100 ??Surface Area (cm^2): ??17.94 ??Area Debrided (cm^2): ??17.94 ??Volume (cm^3): ??1.79 ??Tissue and other material debrided: dermis, epidermis and subcutaneous tissue ?Devitalized tissue debrided: biofilm and slough ?Instrument: ??Curette ??Amount of bleeding: small ?Hemostasis obtained with: ??Pressure ??Procedural pain: ??0 ??Post-procedural pain: ??0 ??Response to treatment: ??Procedure was tolerated well us Cy MISTRY IN CLINIC/BEDSIDE ORDERABLE S Final Result * Wound Care Procedure Venous Ulcer Left;Lateral;Lower Leg (11/16/2024 3:15 PM EDT) Narrative Angelo Wallace MD - 11/16/2024 3:15 PM EDT FIDELIA Prater ? 11/16/2024 ??3:43 PM Wound Care Procedure Venous Ulcer Left;Lateral;Lower Leg Date/Time: 11/16/2024 3:15 PM Performed by: Abiola Richter RN Authorized by: FIDELIA Prater ??Associated wounds: Wound Venous Ulcer 10/12/24 Leg Left;Lateral;Lower Consent: ??Consent obtained: ??Verbal ??Consent given by: ??Patient ??Risks, benefits, and alternatives were discussed: yes ?Risks discussed: ??Infection and pain ??Alternatives discussed: ??Delayed treatment [place] protocol: ??Procedure explained and questions answered to patient or proxy's satisfaction: yes ?Relevant documents present and verified: yes ?Patient identity confirmed: ??Verbally with patient Sedation: ??Sedation type: ??None Anesthesia: ??Anesthesia method: ??None Procedure details: ??Indications: open wounds ?Wound location: ??Leg ??Leg location: ??L lower leg ??Wound age (days): ??>14 Dressing: ??Dressing: Coban 2 compression system. Post-procedure details: ??Procedure completion: ??Tolerated us Cy MISTRY IN CLINIC/BEDSIDE ORDERABLE S Final Result * Wound Care Procedure Venous Ulcer (Cluster ) Right;Medial;Lower Leg (11/16/2024 3:15 PM EDT) Narrative Angelo Wallace MD - 11/16/2024 3:15 PM EDT FIDELIA Prater ? 11/16/2024 ??3:43 PM Wound Care Procedure Venous Ulcer (Cluster ) Right;Medial;Lower Leg Date/Time: 11/16/2024 3:15 PM Performed by: Abiola Richter RN Authorized by: FIDELIA Prater ??Associated wounds: Wound Venous Ulcer 10/12/24 Leg Right;Medial;Lower Consent: ??Consent obtained: ??Verbal ??Consent given by: ??Patient ??Risks, benefits, and alternatives were discussed: yes ?Risks discussed: ??Pain and infection ??Alternatives discussed: ??Delayed treatment [place] protocol: ??Procedure explained and questions answered to patient or proxy's satisfaction: yes ?Relevant documents present and verified: yes ?Test results available: yes ?Patient identity confirmed: ??Verbally with patient Sedation: ??Sedation type: ??None Anesthesia: ??Anesthesia method: ??None Procedure details: ??Indications: open wounds ?Wound location: ??Leg ??Leg location: ??R lower leg ??Wound age (days): ??>14 Dressing: ??Dressing: coban 2 compression system. Post-procedure details: ??Procedure completion: ??Tolerated us Cy MISTRY IN CLINIC/BEDSIDE ORDERABLE S Final Result * Debridement Venous Ulcer (Cluster ) Right;Medial;Lower Leg (11/16/2024 2:30 PM EDT) Narrative Angelo Wallace MD - 11/16/2024 2:30 PM EDT FIDELIA Prater ? 11/16/2024 ??3:43 PM Debridement Venous Ulcer (Cluster ) Right;Medial;Lower Leg Performed by: FIDELIA Prater Authorized by: FIDELIA Prater ??Associated wounds: Wound Venous Ulcer 10/12/24 Leg Right;Medial;Lower Consent: ??Consent obtained: ??Verbal ??Consent given by: ??Patient ??Risks discussed: Yes ?? Time out: Immediately prior to the procedure a time out was called ?? Debridement Details: ??Performed by: ??PA ??Type: surgical ?Level: subcutaneous tissue ?Pain control: ??Lidocaine 4% ??Severity of Tissue Pre Debridement: ??Fat layer exposed ??Severity of Tissue Post Debridement: ??Fat layer exposed ??Time taken: ??11/16/2024 3:08 PM ??Length (cm): ??1.8 (Cluster of 3) ??Width (cm): ??4 ??Depth (cm): ??0.1 ??Area (cm^2): ??7.2 ??Time taken: ??11/16/2024 3:09 PM ??Length (cm): ??1.8 ??Width (cm): ??4 ??Depth (cm): ??0.1 ??Percent Debrided (%): ??100 ??Surface Area (cm^2): ??7.2 ??Area Debrided (cm^2): ??7.2 ??Volume (cm^3): ??0.72 ??Tissue and other material debrided: dermis, epidermis and subcutaneous tissue ?Devitalized tissue debrided: biofilm and slough ?Instrument: ??Curette ??Amount of bleeding: none ?Hemostasis obtained with: ??Not applicable ??Procedural pain: ??0 ??Post-procedural pain: ??0 ??Response to treatment: ??Procedure was tolerated well us Cy MISTRY IN CLINIC/BEDSIDE ORDERABLE S Final Result * Debridement Venous Ulcer Left;Lateral;Lower Leg (11/16/2024 2:30 PM EDT) Narrative Angelo Wallace MD - 11/16/2024 2:30 PM EDT FIDELIA Prater ? 11/16/2024 ??3:43 PM Debridement Venous Ulcer Left;Lateral;Lower Leg Performed by: FIDELIA Prater Authorized by: FIDELIA Prater ??Associated wounds: Wound Venous Ulcer 10/12/24 Leg Left;Lateral;Lower Consent: ??Consent obtained: ??Verbal ??Consent given by: ??Patient ??Risks discussed: Yes ?? Time out: Immediately prior to the procedure a time out was called ?? Debridement Details: ??Performed by: ??PA ??Type: surgical ?Level: subcutaneous tissue ?Pain control: ??Lidocaine 4% ??Severity of Tissue Pre Debridement: ??Fat layer exposed ??Severity of Tissue Post Debridement: ??Fat layer exposed ??Time taken: ??11/16/2024 3:06 PM ??Length (cm): ??4.8 ??Width (cm): ??4.4 ??Depth (cm): ??0.1 ??Area (cm^2): ??21.12 ??Time taken: ??11/16/2024 3:07 PM ??Length (cm): ??4.8 ??Width (cm): ??4.4 ??Depth (cm): ??0.1 ??Percent Debrided (%): ??100 ??Surface Area (cm^2): ??21.12 ??Area Debrided (cm^2): ??21.12 ??Volume (cm^3): ??2.11 ??Tissue and other material debrided: dermis, epidermis and subcutaneous tissue ?Devitalized tissue debrided: biofilm and slough ?Instrument: ??Curette ??Amount of bleeding: none ?Hemostasis obtained with: ??Not applicable ??Procedural pain: ??0 ??Post-procedural pain: ??0 ??Response to treatment: ??Procedure was tolerated well us Cy MISTRY IN CLINIC/BEDSIDE ORDERABLE S Final Result * Wound Care Procedure Venous Ulcer Left;Lateral;Lower Leg (11/09/2024 3:23 PM EDT) Narrative Angelo Wallace MD - 11/09/2024 3:23 PM EDT FIDELIA Prater ? 11/09/2024 ??3:32 PM Wound Care Procedure Venous Ulcer Left;Lateral;Lower Leg Date/Time: 11/09/2024 3:23 PM Performed by: Era Cavazos RN Authorized by: FIDELIA Prater ??Associated wounds: Wound Venous Ulcer 10/12/24 Leg Left;Lateral;Lower Consent: ??Consent obtained: ??Verbal ??Consent given by: ??Patient ??Risks, benefits, and alternatives were discussed: yes ?Risks discussed: ??Infection and pain ??Alternatives discussed: ??Delayed treatment [place] protocol: ??Procedure explained and questions answered to patient or proxy's satisfaction: yes ?Relevant documents present and verified: yes ?Patient identity confirmed: ??Verbally with patient Sedation: ??Sedation type: ??None Anesthesia: ??Anesthesia method: ??None Procedure details: ??Indications: open wounds ?Wound location: ??Leg ??Leg location: ??L lower leg ??Wound age (days): ??>14 Dressing: ??Dressing: Coban 2 compression system. Post-procedure details: ??Procedure completion: ??Tolerated us Cy MISTRY IN CLINIC/BEDSIDE ORDERABLE S Final Result * Wound Care Procedure Venous Ulcer (Cluster ) Right;Medial;Lower Leg (11/09/2024 3:22 PM EDT) Narrative Angelo Wallace MD - 11/09/2024 3:22 PM EDT FIDELIA Prater ? 11/09/2024 ??3:32 PM Wound Care Procedure Venous Ulcer (Cluster ) Right;Medial;Lower Leg Date/Time: 11/09/2024 3:22 PM Performed by: Era Cavazos RN Authorized by: FIDELIA Prater ??Associated wounds: Wound Venous Ulcer 10/12/24 Leg Right;Medial;Lower Consent: ??Consent obtained: ??Verbal ??Consent given by: ??Patient ??Risks, benefits, and alternatives were discussed: yes ?Risks discussed: ??Pain and infection ??Alternatives discussed: ??Delayed treatment [place] protocol: ??Procedure explained and questions answered to patient or proxy's satisfaction: yes ?Relevant documents present and verified: yes ?Test results available: yes ?Patient identity confirmed: ??Verbally with patient Sedation: ??Sedation type: ??None Anesthesia: ??Anesthesia method: ??None Procedure details: ??Indications: open wounds ?Wound location: ??Leg ??Leg location: ??R lower leg ??Wound age (days): ??>14 Dressing: ??Dressing: coban 2 compression system. Post-procedure details: ??Procedure completion: ??Tolerated us Cy MISTRY IN CLINIC/BEDSIDE ORDERABLE S Final Result * Debridement Venous Ulcer (Cluster ) Right;Medial;Lower Leg (11/09/2024 2:45 PM EDT) Narrative Angelo Wallace MD - 11/09/2024 2:45 PM EDT FIDELIA Prater ? 11/09/2024 ??3:32 PM Debridement Venous Ulcer (Cluster ) Right;Medial;Lower Leg Performed by: FIDELIA Prater Authorized by: FIDELIA Prater ??Associated wounds: Wound Venous Ulcer 10/12/24 Leg Right;Medial;Lower Consent: ??Consent obtained: ??Verbal ??Consent given by: ??Patient ??Risks discussed: Yes ?? Time out: Immediately prior to the procedure a time out was called ?? Debridement Details: ??Performed by: ??PA ??Type: surgical ?Level: subcutaneous tissue ?Pain control: ??Lidocaine 4% ??Severity of Tissue Pre Debridement: ??Fat layer exposed ??Severity of Tissue Post Debridement: ??Fat layer exposed ??Time taken: ??11/09/2024 3:04 PM ??Length (cm): ??5 (Cluster of 5) ??Width (cm): ??5.4 ??Depth (cm): ??0.1 ??Area (cm^2): ??27 ??Time taken: ??11/09/2024 3:05 PM ??Length (cm): ??5 ??Width (cm): ??5.4 ??Depth (cm): ??0.1 ??Percent Debrided (%): ??55 ??Surface Area (cm^2): ??27 ??Area Debrided (cm^2): ??14.85 ??Volume (cm^3): ??2.7 ??Tissue and other material debrided: dermis, epidermis and subcutaneous tissue ?Devitalized tissue debrided: biofilm and slough ?Instrument: ??Curette ??Amount of bleeding: small ?Hemostasis obtained with: ??Silver nitrate and pressure ??Procedural pain: ??0 ??Post-procedural pain: ??0 ??Response to treatment: ??Procedure was tolerated well us Cy MISTRY IN CLINIC/BEDSIDE ORDERABLE S Final Result * Debridement Venous Ulcer Left;Lateral;Lower Leg (11/09/2024 2:45 PM EDT) Narrative Angelo Wallace MD - 11/09/2024 2:45 PM EDT FIDELIA Prater ? 11/09/2024 ??3:32 PM Debridement Venous Ulcer Left;Lateral;Lower Leg Performed by: FIDELIA Prater Authorized by: FIDELIA Prater ??Associated wounds: Wound Venous Ulcer 10/12/24 Leg Left;Lateral;Lower Consent: ??Consent obtained: ??Verbal ??Consent given by: ??Patient ??Risks discussed: Yes ?? Time out: Immediately prior to the procedure a time out was called ?? Debridement Details: ??Performed by: ??PA ??Type: surgical ?Level: subcutaneous tissue ?Pain control: ??Lidocaine 4% ??Severity of Tissue Pre Debridement: ??Fat layer exposed ??Severity of Tissue Post Debridement: ??Fat layer exposed ??Time taken: ??11/09/2024 3:03 PM ??Length (cm): ??4.7 ??Width (cm): ??4.3 ??Depth (cm): ??0.1 ??Area (cm^2): ??20.21 ??Time taken: ??11/09/2024 3:04 PM ??Length (cm): ??4.7 ??Width (cm): ??4.3 ??Depth (cm): ??0.1 ??Percent Debrided (%): ??100 ??Surface Area (cm^2): ??20.21 ??Area Debrided (cm^2): ??20.21 ??Volume (cm^3): ??2.02 ??Tissue and other material debrided: dermis, epidermis and subcutaneous tissue ?Devitalized tissue debrided: biofilm and slough ?Instrument: ??Curette ??Amount of bleeding: small ?Hemostasis obtained with: ??Silver nitrate and pressure ??Procedural pain: ??0 ??Post-procedural pain: ??0 ??Response to treatment: ??Procedure was tolerated well us Cy MISTRY IN CLINIC/BEDSIDE ORDERABLE S Final Result * Debridement Venous Ulcer (Cluster ) Right;Medial;Lower Leg (11/02/2024 2:30 PM EDT) Narrative Angelo Wallace MD - 11/02/2024 2:30 PM EDT FIDELIA Prater ? 11/02/2024 ??2:41 PM Debridement Venous Ulcer (Cluster ) Right;Medial;Lower Leg Performed by: FIDELIA Prater Authorized by: FIDELIA Prater ??Associated wounds: Wound Venous Ulcer 10/12/24 Leg Right;Medial;Lower Consent: ??Consent obtained: ??Verbal ??Consent given by: ??Patient ??Risks discussed: Yes ?? Time out: Immediately prior to the procedure a time out was called ?? Debridement Details: ??Performed by: ??PA ??Type: surgical ?Level: subcutaneous tissue ?Pain control: ??Lidocaine 4% ??Severity of Tissue Pre Debridement: ??Fat layer exposed ??Severity of Tissue Post Debridement: ??Fat layer exposed ??Time taken: ??11/02/2024 2:07 PM ??Length (cm): ??6.4 (Cluster of 8) ??Width (cm): ??8 ??Depth (cm): ??0.1 ??Area (cm^2): ??51.2 ??Time taken: ??11/02/2024 2:08 PM ??Length (cm): ??6.4 ??Width (cm): ??8 ??Depth (cm): ??0.1 ??Percent Debrided (%): ??50 ??Surface Area (cm^2): ??51.2 ??Area Debrided (cm^2): ??25.6 ??Volume (cm^3): ??5.12 ??Tissue and other material debrided: dermis, epidermis and subcutaneous tissue ?Devitalized tissue debrided: biofilm and slough ?Instrument: ??Curette ??Amount of bleeding: none ?Hemostasis obtained with: ??Not applicable ??Procedural pain: ??0 ??Post-procedural pain: ??0 ??Response to treatment: ??Procedure was tolerated well us Cy MISTRY IN CLINIC/BEDSIDE ORDERABLE S Final Result * Debridement Venous Ulcer Left;Lateral;Lower Leg (11/02/2024 2:30 PM EDT) Narrative Angelo Wallace MD - 11/02/2024 2:30 PM EDT FIDELIA Prater ? 11/02/2024 ??2:41 PM Debridement Venous Ulcer Left;Lateral;Lower Leg Performed by: FIDELIA Prater Authorized by: FIDELIA Prater ??Associated wounds: Wound Venous Ulcer 10/12/24 Leg Left;Lateral;Lower Consent: ??Consent obtained: ??Verbal ??Consent given by: ??Patient ??Risks discussed: Yes ?? Time out: Immediately prior to the procedure a time out was called ?? Debridement Details: ??Performed by: ??PA ??Type: surgical ?Level: subcutaneous tissue ?Pain control: ??Lidocaine 4% ??Severity of Tissue Pre Debridement: ??Fat layer exposed ??Severity of Tissue Post Debridement: ??Fat layer exposed ??Time taken: ??11/02/2024 2:08 PM ??Length (cm): ??4.7 ??Width (cm): ??4.1 ??Depth (cm): ??0.1 ??Area (cm^2): ??19.27 ??Time taken: ??11/02/2024 2:09 PM ??Length (cm): ??4.7 ??Width (cm): ??4.1 ??Depth (cm): ??0.1 ??Percent Debrided (%): ??100 ??Surface Area (cm^2): ??. ??Area Debrided (cm^2): ??. ??Volume (cm^3): ??1.93 ??Tissue and other material debrided: dermis, epidermis and subcutaneous tissue ?Devitalized tissue debrided: biofilm and slough ?Instrument: ??Curette ??Amount of bleeding: none ?Hemostasis obtained with: ??Not applicable ??Procedural pain: ??0 ??Post-procedural pain: ??0 ??Response to treatment: ??Procedure was tolerated well us Cy MISTRY IN CLINIC/BEDSIDE ORDERABLE S Final Result * Wound Care Procedure Venous Ulcer Left;Lateral;Lower Leg (11/02/2024 2:26 PM EDT) Narrative Angelo Wallace MD - 11/02/2024 2:26 PM EDT FIDELIA Prater ? 11/02/2024 ??2:41 PM Wound Care Procedure Venous Ulcer Left;Lateral;Lower Leg Date/Time: 11/02/2024 2:26 PM Performed by: Era Cavazos RN Authorized by: FIDELIA Prater ??Associated wounds: Wound Venous Ulcer 10/12/24 Leg Left;Lateral;Lower Consent: ??Consent obtained: ??Verbal ??Consent given by: ??Patient ??Risks, benefits, and alternatives were discussed: yes ?Risks discussed: ??Infection and pain ??Alternatives discussed: ??Delayed treatment [place] protocol: ??Procedure explained and questions answered to patient or proxy's satisfaction: yes ?Relevant documents present and verified: yes ?Patient identity confirmed: ??Verbally with patient Sedation: ??Sedation type: ??None Anesthesia: ??Anesthesia method: ??None Procedure details: ??Indications: open wounds ?Wound location: ??Leg ??Leg location: ??L lower leg ??Wound age (days): ??>14 Dressing: ??Dressing: Coban 2 compression system. Post-procedure details: ??Procedure completion: ??Tolerated us Cy MISTRY IN CLINIC/BEDSIDE ORDERABLE S Final Result * Wound Care Procedure Venous Ulcer (Cluster ) Right;Medial;Lower Leg (11/02/2024 2:25 PM EDT) Narrative Angelo Wallace MD - 11/02/2024 2:25 PM EDT FIDELIA Prater ? 11/02/2024 ??2:41 PM Wound Care Procedure Venous Ulcer (Cluster ) Right;Medial;Lower Leg Date/Time: 11/02/2024 2:25 PM Performed by: Era Cavazos RN Authorized by: FIDELIA Prater ??Associated wounds: Wound Venous Ulcer 10/12/24 Leg Right;Medial;Lower Consent: ??Consent obtained: ??Verbal ??Consent given by: ??Patient ??Risks, benefits, and alternatives were discussed: yes ?Risks discussed: ??Pain and infection ??Alternatives discussed: ??Delayed treatment [place] protocol: ??Procedure explained and questions answered to patient or proxy's satisfaction: yes ?Relevant documents present and verified: yes ?Test results available: yes ?Patient identity confirmed: ??Verbally with patient Sedation: ??Sedation type: ??None Anesthesia: ??Anesthesia method: ??None Procedure details: ??Indications: open wounds ?Wound location: ??Leg ??Leg location: ??R lower leg ??Wound age (days): ??>14 Dressing: ??Dressing: coban 2 compression system. Post-procedure details: ??Procedure completion: ??Tolerated us Cy MISTRY IN CLINIC/BEDSIDE ORDERABLE S Final Result * Wound Care Procedure Venous Ulcer Left;Lateral;Lower Leg (10/19/2024 2:02 PM EST) Narrative Angelo Wallace MD - 10/19/2024 2:02 PM EST FIDELIA Prater ? 10/19/2024 ??2:11 PM Wound Care Procedure Venous Ulcer Left;Lateral;Lower Leg Date/Time: 10/19/2024 2:02 PM Performed by: Era Cavazos RN Authorized by: FIDELIA Prater ??Associated wounds: Wound Venous Ulcer 10/12/24 Leg Left;Lateral;Lower Consent: ??Consent obtained: ??Verbal ??Consent given by: ??Patient ??Risks, benefits, and alternatives were discussed: yes ?Risks discussed: ??Infection and pain ??Alternatives discussed: ??Delayed treatment [place] protocol: ??Procedure explained and questions answered to patient or proxy's satisfaction: yes ?Relevant documents present and verified: yes ?Patient identity confirmed: ??Verbally with patient Sedation: ??Sedation type: ??None Anesthesia: ??Anesthesia method: ??None Procedure details: ??Indications: open wounds ?Wound location: ??Leg ??Leg location: ??L lower leg ??Wound age (days): ??>14 Dressing: ??Dressing: Coban 2 compression system. Post-procedure details: ??Procedure completion: ??Tolerated us Cy MISTRY IN CLINIC/BEDSIDE ORDERABLE S Final Result * Wound Care Procedure Venous Ulcer (Cluster ) Right;Medial;Lower Leg (10/19/2024 2:02 PM EST) Narrative Angelo Wallace MD - 10/19/2024 2:02 PM EST FIDELIA Prater ? 10/19/2024 ??2:11 PM Wound Care Procedure Venous Ulcer (Cluster ) Right;Medial;Lower Leg Date/Time: 10/19/2024 2:02 PM Performed by: Era Cavazos RN Authorized by: FIDELIA Prater ??Associated wounds: Wound Venous Ulcer 10/12/24 Leg Right;Medial;Lower Consent: ??Consent obtained: ??Verbal ??Consent given by: ??Patient ??Risks, benefits, and alternatives were discussed: yes ?Risks discussed: ??Pain and infection ??Alternatives discussed: ??Delayed treatment [place] protocol: ??Procedure explained and questions answered to patient or proxy's satisfaction: yes ?Relevant documents present and verified: yes ?Test results available: yes ?Patient identity confirmed: ??Verbally with patient Sedation: ??Sedation type: ??None Anesthesia: ??Anesthesia method: ??None Procedure details: ??Indications: open wounds ?Wound location: ??Leg ??Leg location: ??R lower leg ??Wound age (days): ??>14 Dressing: ??Dressing: coban 2 compression system. Post-procedure details: ??Procedure completion: ??Tolerated us Cy MISTRY IN CLINIC/BEDSIDE ORDERABLE S Final Result * Debridement Venous Ulcer (Cluster ) Right;Medial;Lower Leg (10/19/2024 1:15 PM EST) Narrative Angelo Wallace MD - 10/19/2024 1:15 PM EST FIDELIA Prater ? 10/19/2024 ??2:11 PM Debridement Venous Ulcer (Cluster ) Right;Medial;Lower Leg Performed by: FIDELIA Prater Authorized by: FIDELIA Prater ??Associated wounds: Wound Venous Ulcer 10/12/24 Leg Right;Medial;Lower Consent: ??Consent obtained: ??Verbal ??Consent given by: ??Patient ??Risks discussed: Yes ?? Time out: Immediately prior to the procedure a time out was called ?? Debridement Details: ??Performed by: ??PA ??Type: surgical ?Level: subcutaneous tissue ?Pain control: ??Lidocaine 4% ??Severity of Tissue Pre Debridement: ??Fat layer exposed ??Severity of Tissue Post Debridement: ??Fat layer exposed ??Time taken: ??10/19/2024 1:44 PM ??Length (cm): ??8.6 (Cluster of 10) ??Width (cm): ??8.7 ??Depth (cm): ??0.1 ??Area (cm^2): ??74.82 ??Time taken: ??10/19/2024 1:45 PM ??Length (cm): ??8.6 ??Width (cm): ??8.7 ??Depth (cm): ??0.1 ??Percent Debrided (%): ??50 ??Surface Area (cm^2): ??74.82 ??Area Debrided (cm^2): ??37.41 ??Volume (cm^3): ??7.48 ??Tissue and other material debrided: dermis, epidermis and subcutaneous tissue ?Devitalized tissue debrided: biofilm and slough ?Instrument: ??Curette ??Amount of bleeding: none ?Hemostasis obtained with: ??Not applicable ??Procedural pain: ??0 ??Post-procedural pain: ??0 ??Response to treatment: ??Procedure was tolerated well us Cy MISTRY IN CLINIC/BEDSIDE ORDERABLE S Final Result * Debridement Venous Ulcer Left;Lateral;Lower Leg (10/19/2024 1:15 PM EST) Narrative Angelo Wallace MD - 10/19/2024 1:15 PM EST FIDELIA Prater ? 10/19/2024 ??2:11 PM Debridement Venous Ulcer Left;Lateral;Lower Leg Performed by: FIDELIA Prater Authorized by: FIDELIA Prater ??Associated wounds: Wound Venous Ulcer 10/12/24 Leg Left;Lateral;Lower Consent: ??Consent obtained: ??Verbal ??Consent given by: ??Patient ??Risks discussed: Yes ?? Time out: Immediately prior to the procedure a time out was called ?? Debridement Details: ??Performed by: ??PA ??Type: surgical ?Level: subcutaneous tissue ?Pain control: ??Lidocaine 4% ??Severity of Tissue Pre Debridement: ??Fat layer exposed ??Severity of Tissue Post Debridement: ??Fat layer exposed ??Time taken: ??10/19/2024 1:42 PM ??Length (cm): ??4.4 ??Width (cm): ??4.3 ??Depth (cm): ??0.1 ??Area (cm^2): ??18.92 ??Time taken: ??10/19/2024 1:43 PM ??Length (cm): ??4 ??Width (cm): ??4.3 ??Depth (cm): ??0.1 ??Percent Debrided (%): ??100 ??Surface Area (cm^2): ??17.2 ??Area Debrided (cm^2): ??17.2 ??Volume (cm^3): ??1.72 ??Tissue and other material debrided: dermis, epidermis and subcutaneous tissue ?Devitalized tissue debrided: biofilm and slough ?Instrument: ??Curette ??Amount of bleeding: none ?Hemostasis obtained with: ??Not applicable ??Procedural pain: ??0 ??Post-procedural pain: ??0 ??Response to treatment: ??Procedure was tolerated well us Cy MISTRY IN CLINIC/BEDSIDE ORDERABLE S Final Result * XR Hip 2-3 Views Right (10/14/2024 1:07 PM EST) Anatomical Region Laterality Modality Lower Extremities, Hip Right Radiograp hic Imaging 10/15/2024 7:47 AM EST Impressions 10/15/2024 7:50 AM EST No fracture or dislocation. There is severe osteoarthritis of the right hip and moderate osteoarthritis of the left hip. 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 Code 21484 -------- FINAL REPORT -------- Dictated By: Chele Clinton Dictated Date: 10/15/2024 07:47 ET Assigned Physician: Chele Clinton Reviewed and Electronically Signed By: Chele Clinton Signed Date: 10/15/2024 07:50 ET Workstation ID: [id number] Transcribed By: Self Edit Transcribed Date: 10/15/2024 07:47 ET Narrative 10/15/2024 7:50 AM EST HISTORY: The patient is a 59-year-old male with pain in the right hip. No history of trauma is provided. FINDINGS: AP radiograph of the pelvis, along with coned-down AP and external rotation-abduction views of the right hip, are obtained. The study demonstrates no fracture, dislocation, or osteolytic or osteoblastic lesion. There is severe narrowing of the right hip joint space with [id number] appearance superiorly, sclerosis of the articular surfaces, marginal osteophytes, and subchondral cyst formation. These findings are consistent with severe osteoarthritis. There is also less severe narrowing of the left hip joint space with marginal osteophytes, consistent with moderate osteoarthritis. There is soft tissue calcification just lateral to the right hip joint consistent with calcific tendinitis and/or calcific bursitis. Surgical clips are present medial to the proximal right femur. Procedure Note Chele Clinton MD - 10/15/2024 HISTORY: The patient is a 59-year-old male with pain in the right hip. Nohistory of trauma is provided. FINDINGS: AP radiograph of the pelvis, along with coned-down AP andexternal rotation-abduction views of the right hip, are obtained. Thestudy demonstrates no fracture, dislocation, or osteolytic or osteoblasticlesion. There is severe narrowing of the right hip joint space [id number] appearance superiorly, sclerosis of the articular surfaces,marginal osteophytes, and subchondral cyst formation. These findings areconsistent with severe osteoarthritis. There is also less severe narrowingof the left hip joint space with marginal osteophytes, consistent withmoderate osteoarthritis. There is soft tissue calcification just lateralto the right hip joint consistent with calcific tendinitis and/or calcificbursitis. Surgical clips are present medial to the proximal right femur. IMPRESSION: No fracture or dislocation. There is severe osteoarthritis of the righthip and moderate osteoarthritis of the left hip. There is also evidence ofcalcific tendinitis and/or calcific bursitis of the right hip. Code 43196 -------- FINAL REPORT -------- Dictated By: Chele Clinton Dictated Date: 10/15/2024 07:47 ET Assigned Physician: Chele Clinton Reviewed and Electronically Signed By: Chele Clinton Signed Date: 10/15/2024 07:50 ET Workstation ID: [id number] Transcribed By: Self Edit Transcribed Date: 10/15/2024 07:47 ET us Kavya Mckenzie MD IMG XR PROCEDURES Final Resul t * Wound Care Procedure Venous Ulcer Left;Lateral;Lower Leg (10/12/2024 2:32 PM EST) Narrative Cy Hernández PA - 10/12/2024 2:32 PM EST FIDELIA Prater ? 10/12/2024 ??3:26 PM Wound Care Procedure Venous Ulcer Left;Lateral;Lower Leg Date/Time: 10/12/2024 2:32 PM Performed by: Era Cavazos RN Authorized by: FIDELIA Prater ??Associated wounds: Wound Venous Ulcer 10/12/24 Leg Left;Lateral;Lower Consent: ??Consent obtained: ??Verbal ??Consent given by: ??Patient ??Risks, benefits, and alternatives were discussed: yes ?Risks discussed: ??Infection and pain ??Alternatives discussed: ??Delayed treatment [place] protocol: ??Procedure explained and questions answered to patient or proxy's satisfaction: yes ?Relevant documents present and verified: yes ?Patient identity confirmed: ??Verbally with patient Sedation: ??Sedation type: ??None Anesthesia: ??Anesthesia method: ??None Procedure details: ??Indications: open wounds ?Wound location: ??Leg ??Leg location: ??L lower leg ??Wound age (days): ??>14 Dressing: ??Dressing: Coban 2 compression system. Post-procedure details: ??Procedure completion: ??Tolerated us Cy MISTRY IN CLINIC/BEDSIDE ORDERABLE S Final Result * Wound Care Procedure (10/12/2024 2:32 PM EST) Cy Garcia PA - 10/12/2024 2:32 PM EST FIDELIA Prater ? 10/12/2024 ??3:26 PM Wound Care Procedure Date/Time: 10/12/2024 2:32 PM Performed by: Era Cavazos RN Authorized by: FIDELIA Prater ??Associated wounds: Wound Venous Ulcer 10/12/24 Pretibial Right Wound Venous Ulcer 10/12/24 Leg Right;Medial;Lower Consent: ??Consent obtained: ??Verbal ??Consent given by: ??Patient ??Risks, benefits, and alternatives were discussed: yes ?Risks discussed: ??Pain and infection ??Alternatives discussed: ??Delayed treatment [place] protocol: ??Procedure explained and questions answered to patient or proxy's satisfaction: yes ?Relevant documents present and verified: yes ?Test results available: yes ?Patient identity confirmed: ??Verbally with patient Sedation: ??Sedation type: ??None Anesthesia: ??Anesthesia method: ??None Procedure details: ??Indications: open wounds ?Wound location: ??Leg ??Leg location: ??R lower leg ??Wound age (days): ??>14 Dressing: ??Dressing: coban 2 compression system. Post-procedure details: ??Procedure completion: ??Tolerated us Cy MISTRY IN CLINIC/BEDSIDE ORDERABLE S Final Result * (ABNORMAL) Culture wound with gram stain (10/12/2024 2:28 PM EST) Culture, Wound Escherichia coli(A) MUSHTAQ 10/16/2024 9:55 AM [facility] Comment: The organism value for this result has been updated. These results have been appended to the previously preliminary verified report. This is an edited result. Previous organism was Gram negative bacilli on 10/14/2024 at 1115 EST. Culture, Wound Proteus mirabilis(A) MUSHTAQ 10/16/2024 9:55 AM [facility] Comment: The organism value for this result has been updated. These results have been appended to the previously preliminary verified report. Edited result: Previously reported as Proteus species on 10/14/2024 at 1115 EST. Culture, Wound Enterococcus faecalis(A) MUSHTAQ 10/16/2024 9:55 AM [facility] Comment: The organism value for this result has been updated. These results have been appended to the previously preliminary verified report. This is an edited result. Previous organism was Streptococcus Gamma non hemolytic on 10/15/2024 at 1143 EST. Culture, Wound Streptococcus beta-hemolytic Group B(A) MUSHTAQ 10/16/2024 9:55 AM [facility] Comment: Susceptibility testing is not routinely performed for Beta Streptococcus isolates since these organisms are predictably sensitive to Penicillin. If the Patient is not responding, is allergic to Penicillin, or further therapeutic information is requir ed, please consult an Infectious Disease Specialist. The organism value for this result has been updated. These results have been appended to the previously preliminary verified report. Gram Stain Result Rare Polymorphonuclear leukocytes 10/16/2024 9:55 AM [facility] Gram Stain Result No epithelial cells seen 10/16/2024 9:55 AM EST [facility] Gram Stain Result No organisms seen 10/16/2024 9:55 AM EST [facility] Swab Structure of right lower limb / Unknown Non-blood Collection / Unknown 10/12/2024 2:28 PM EST 10/12/2024 3:52 PM EST Narrative Organism Antibiotic Method Susceptibility Escherichia coli Amoxicillin/Clavulanate MUSHTAQ <=2 ug/ml: Susceptible Escherichia coli Ampicillin/Sulbactam MUSHTAQ <=2 ug/ml: Susceptible Escherichia coli Piperacillin/Tazobactam MUSHTAQ <=4 ug/ml: Susceptible Escherichia coli Cefazolin (Other) MUSHTAQ <=1 ug/ml: Susceptible Escherichia coli Cefoxitin MUSHTAQ <=4 ug/ml: Susceptible Escherichia coli Ceftazidime MUSHTAQ <=0.5 ug/ml: Susceptible Escherichia coli Ceftriaxone MUSHTAQ <=0.25 ug/ml: Susceptible Escherichia coli Cefepime MUSHTAQ <=0.12 ug/ml: Susceptible Escherichia coli Meropenem MUSHTAQ <=0.25 ug/ml: Susceptible Escherichia coli Amikacin MUSHTAQ 2 ug/ml: Susceptible Escherichia coli Gentamicin MUSHTAQ <=1 ug/ml: Susceptible Escherichia coli Ciprofloxacin MUSHTAQ <=0.06 ug/ml: Susceptible Escherichia coli Levofloxacin MUSHTAQ <=0.12 ug/ml: Susceptible Escherichia coli Trimethoprim/Sulfamethoxazole MUSHTAQ <=20 ug/ml: Susceptible Proteus mirabilis Amoxicillin/Clavulanate MUSHTAQ <=2 ug/ml: Susceptible Proteus mirabilis Ampicillin/Sulbactam MUSHTAQ <=2 ug/ml: Susceptible Proteus mirabilis Piperacillin/Tazobactam MUSHTAQ <=4 ug/ml: Susceptible Proteus mirabilis Cefazolin (Other) MUSHTAQ 4 ug/ml: Intermediate Proteus mirabilis Cefoxitin MUSHTAQ <=4 ug/ml: Susceptible Proteus mirabilis Ceftazidime MUSHTAQ <=0.5 ug/ml: Susceptible Proteus mirabilis Ceftriaxone MUSHTAQ <=0.25 ug/ml: Susceptible Proteus mirabilis Cefepime MUSHTAQ <=0.12 ug/ml: Susceptible Proteus mirabilis Meropenem MUSHTAQ <=0.25 ug/ml: Susceptible Proteus mirabilis Amikacin MUSHTAQ 4 ug/ml: Susceptible Proteus mirabilis Gentamicin MUSHTAQ <=1 ug/ml: Susceptible Proteus mirabilis Ciprofloxacin MUSHTAQ 0.25 ug/ml: Susceptible Proteus mirabilis Levofloxacin MUSHTAQ 1 ug/ml: Intermediate Proteus mirabilis Trimethoprim/Sulfamethoxazole MUSHTAQ <=20 ug/ml: Susceptible Enterococcus faecalis Benzylpenicillin MUSHTAQ 4 ug/ml: Susceptible Enterococcus faecalis Ampicillin MUSHTAQ <=2 ug/ml: Susceptible Enterococcus faecalis Linezolid MUSHTAQ 2 ug/ml: Susceptible Enterococcus faecalis Vancomycin MUSHTAQ 1 ug/ml: Susceptible Cy MISTRY LAB MICROBIOLOGY - GENERAL ORDERABLES Final Result [facility] [address] [place] [address], * Debridement Venous Ulcer (Cluster ) Right;Medial;Lower Leg (10/12/2024 12:45 PM EST) Cy Garcia PA - 10/12/2024 12:45 PM EST FIDELIA Prater ? 10/12/2024 ??3:26 PM Debridement Venous Ulcer (Cluster ) Right;Medial;Lower Leg Performed by: FIDELIA Prater Authorized by: FIDELIA Prater ??Associated wounds: Wound Venous Ulcer 10/12/24 Leg Right;Medial;Lower Consent: ??Consent obtained: ??Verbal ??Consent given by: ??Patient ??Risks discussed: Yes ?? Time out: Immediately prior to the procedure a time out was called ?? Debridement Details: ??Performed by: ??PA ??Type: surgical ?Level: subcutaneous tissue ?Pain control: ??Lidocaine 4% ??Severity of Tissue Pre Debridement: ??Fat layer exposed ??Severity of Tissue Post Debridement: ??Fat layer exposed ??Time taken: ??10/12/2024 1:25 PM ??Length (cm): ??8.9 (Cluster of 11) ??Width (cm): ??9.5 ??Depth (cm): ??0.1 ??Area (cm^2): ??84.55 ??Time taken: ??10/12/2024 1:26 PM ??Length (cm): ??8.9 ??Width (cm): ??9.5 ??Depth (cm): ??0.1 ??Percent Debrided (%): ??75 ??Surface Area (cm^2): ??84.55 ??Area Debrided (cm^2): ??63.41 ??Volume (cm^3): ??8.46 ??Tissue and other material debrided: dermis, epidermis, hypergranulation and subcutaneous tissue ?Devitalized tissue debrided: biofilm and slough ?Instrument: ??Curette ??Amount of bleeding: small ?Hemostasis obtained with: ??Silver nitrate ??Procedural pain: ??0 ??Post-procedural pain: ??0 ??Response to treatment: ??Procedure was tolerated well us Cy MISTRY IN CLINIC/BEDSIDE ORDERABLE S Final Result * Debridement Venous Ulcer Right Pretibial (10/12/2024 12:45 PM EST) Cy Garcia PA - 10/12/2024 12:45 PM EST FIDELIA Prater ? 10/12/2024 ??3:26 PM Debridement Venous Ulcer Right Pretibial Performed by: FIDELIA Prater Authorized by: FIDELIA Prater ??Associated wounds: Wound Venous Ulcer 10/12/24 Pretibial Right Consent: ??Consent obtained: ??Verbal ??Consent given by: ??Patient ??Risks discussed: Yes ?? Time out: Immediately prior to the procedure a time out was called ?? Debridement Details: ??Performed by: ??PA ??Type: surgical ?Level: subcutaneous tissue ?Pain control: ??Lidocaine 4% ??Severity of Tissue Pre Debridement: ??Fat layer exposed ??Severity of Tissue Post Debridement: ??Fat layer exposed ??Time taken: ??10/12/2024 1:24 PM ??Length (cm): ??0.5 ??Width (cm): ??1.5 ??Depth (cm): ??0.1 ??Area (cm^2): ??0.75 ??Time taken: ??10/12/2024 1:25 PM ??Length (cm): ??0.5 ??Width (cm): ??1.5 ??Depth (cm): ??0.1 ??Percent Debrided (%): ??100 ??Surface Area (cm^2): ??0.75 ??Area Debrided (cm^2): ??0.75 ??Volume (cm^3): ??0.08 ??Tissue and other material debrided: dermis, epidermis and subcutaneous tissue ?Devitalized tissue debrided: biofilm and slough ?Instrument: ??Curette ??Amount of bleeding: none ?Hemostasis obtained with: ??Not applicable ??Procedural pain: ??0 ??Post-procedural pain: ??0 ??Response to treatment: ??Procedure was tolerated well us Cy MISTRY IN CLINIC/BEDSIDE ORDERABLE S Final Result * Debridement Venous Ulcer Left;Lateral;Lower Leg (10/12/2024 12:45 PM EST) Cy Garcia PA - 10/12/2024 12:45 PM EST FIDELIA Prater ? 10/12/2024 ??3:26 PM Debridement Venous Ulcer Left;Lateral;Lower Leg Performed by: FIDELIA Prater Authorized by: FIDELIA Prater ??Associated wounds: Wound Venous Ulcer 10/12/24 Leg Left;Lateral;Lower Consent: ??Consent obtained: ??Verbal ??Consent given by: ??Patient ??Risks discussed: Yes ?? Time out: Immediately prior to the procedure a time out was called ?? Debridement Details: ??Performed by: ??PA ??Type: surgical ?Level: subcutaneous tissue ?Pain control: ??Lidocaine 4% ??Severity of Tissue Pre Debridement: ??Fat layer exposed ??Severity of Tissue Post Debridement: ??Fat layer exposed ??Time taken: ??10/12/2024 1:22 PM ??Length (cm): ??4.6 ??Width (cm): ??4.5 ??Depth (cm): ??0.1 ??Area (cm^2): ??20.7 ??Time taken: ??10/12/2024 1:23 PM ??Length (cm): ??4.6 ??Width (cm): ??4.5 ??Depth (cm): ??0.1 ??Percent Debrided (%): ??100 ??Surface Area (cm^2): ??20.7 ??Area Debrided (cm^2): ??20.7 ??Volume (cm^3): ??2.07 ??Tissue and other material debrided: dermis, epidermis and subcutaneous tissue ?Devitalized tissue debrided: biofilm, exudate, fibrin and slough ?Instrument: ??Curette ??Amount of bleeding: none ?Hemostasis obtained with: ??Not applicable ??Procedural pain: ??0 ??Post-procedural pain: ??0 ??Response to treatment: ??Procedure was tolerated well us Cy MISTRY IN CLINIC/BEDSIDE ORDERABLE S Final Result from Last 3 Months Additional Health Concerns Active Problems Noted Date Diagnosed Date Impaired Tissue 10/13/2024 Education needed on impact of smoking on wound 0 10/13/2024 Education needed related to ulceration/compromised skin integrity. 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
[2024-12-06 13:49] LABS: Estimated Average Glucose 177 mg/dL; Hemoglobin A1C 238.0175 umol/L; Hemoglobin A1c % 7.8 % (<6.0); Total Hemoglobin (HGBA1C) 3826.2356 umol/L
[2024-12-06 14:09] LABS: Alanine Aminotransferase 20 U/L (0-40); Albumin Level 4.5 g/dL (3.5-5.0); Alkaline Phosphatase 110 U/L (39-117); Anion Gap 12 (12-20); Aspartate Amino Transferase 26 U/L (5-37); Bilirubin Total 0.8 mg/dL (0.0-1.0); Blood Urea Nitrogen 9 mg/dL (9-16); Calcium 10.1 mg/dL (8.4-10.2); Carbon Dioxide 29 mmol/L (22-29); Chloride 102 mmol/L (96-108); Estimated Glomerular Filt Rate > 60; Glucose Random 184 mg/dL (60-115); Potassium 3.4 mmol/L (3.3-5.1); Sodium 140 mmol/L (135-145); Total Protein 8.4 g/dL (6.5-8.0)
== END 2024-12-06 10:08 | disposition home or self-care (01) ==
LOC: HO.10HDL 10:07
PROVIDERS: Visit Provider Internal Medicine
DX: E11.65 Type 2 diabetes mellitus with hyperglycemia (principal); I10 Essential (primary) hypertension; M16.0 Bilateral primary osteoarthritis of hip; R80.8 Other proteinuria
CPT/HCPCS: 36415; 80053; 83036

== ENCOUNTER 2025-03-07 11:11 | Outpatient (REF) | payer MEDICAID, SELFPAY ==
--- OUTSIDE RECORDS SUMMARY | 2025-03-07 12:18 | XMS_ITS | Clinical Summary ---
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 Active dulaglutide (TRULICITY SUBQ) Inject under the skin. 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 [address] [place] [phone] Cy Hernández PA Chronic venous hypertension (idiopathic) with ulcer of left lower extremity (CODE) ([facility] V24, CMS/HCC V28) (Primary Dx); Non-pressure chronic ulcer of other part of left lower leg with fat layer exposed (CMS/[facility] V24, CMS/HCC V28) 02/15/2025 2:15 PM EDT Office Visit [facility] [address] [place] [phone] Cy Hernández PA Chronic venous hypertension (idiopathic) with ulcer of left lower extremity (CODE) (CMS/[facility] V24, CMS/[facility] V28) (Primary Dx); Non-pressure chronic ulcer of other part of left lower leg with fat layer exposed (CMS/HCC V24, CMS/HCC V28) 02/03/2025 7:00 AM EDT Ancillary Procedure [facility] [address] [place] [address] [place] [phone] Chronic venous hypertension (idiopathic) with ulcer of left lower extremity (CODE) ([facility] V24, [facility]/HCC V28); Type 2 diabetes mellitus with other skin ulcer (CODE) ([facility] V24, [facility] V28); Venous stasis ulcer of left calf with varicose veins, unspecified ulcer stage (CMS/HCC V24, CMS/HCC V28) 02/01/2025 2:00 PM EDT Office Visit [facility] [address] [place] [phone] Cy Hernández PA Chronic venous hypertension (idiopathic) with ulcer of left lower extremity (CODE) ([facility] V24, [facility] V28) (Primary Dx); Non-pressure chronic ulcer of other part of left lower leg with fat layer exposed ([facility] V24, [facility] V28) 01/19/2025 3:00 PM EDT Consult Orthopedic Surgery [facility] [address] [facility] [address] [place] [phone] Kelsy Melton NP Primary osteoarthritis of right hip (Primary Dx); Non-pressure chronic ulcer of other part of left lower leg with fat layer exposed ([facility] V24, [facility] V28) 01/18/2025 2:00 PM EDT Office Visit [facility] [address] [place] [phone] Cy Hernández PA Chronic venous hypertension (idiopathic) with ulcer of left lower extremity (CODE) ([facility] V24, [facility] V28) (Primary Dx); Non-pressure chronic ulcer of other part of left lower leg with fat layer exposed ([facility] V24, CMS/HCC V28) 01/13/2025 8:30 AM EDT Office Visit Vascular Surgery [facility] [address] [place] [phone] Michelle Lucas MD Chronic venous hypertension (idiopathic) with ulcer of left lower extremity (CODE) ([facility] V24, [facility] V28) (Primary Dx); Venous stasis ulcer of left calf with varicose veins, unspecified ulcer stage ([facility] V24, [facility] V28); Type 2 diabetes mellitus with other skin ulcer (CODE) ([facility] V24, [facility] V28) 01/04/2025 2:00 PM EDT Office Visit [facility] [address] [place] [phone] Cy Hernández PA Chronic venous hypertension (idiopathic) with ulcer of left lower extremity (CODE) ([facility] V24, [facility] V28) (Primary Dx); Non-pressure chronic ulcer of other part of left lower leg with fat layer exposed ([facility] V24, [facility] V28) 01/03/2025 2:30 PM EDT Office Visit Vascular Surgery - [place] [address] [place] [phone] Jef Mcclendon MD Chronic venous hypertension (idiopathic) with ulcer of left lower extremity (CODE) ([facility] V24, [facility] V28) (Primary Dx); Type 2 diabetes mellitus with other skin ulcer (CODE) ([facility] V24, [facility] V28); Venous stasis ulcer of left calf with varicose veins, unspecified ulcer stage ([facility] V24, CMS/[facility] V28) 12/07/2024 2:45 PM EDT Office Visit [facility] [address] [place] [phone] Cy Hernández PA Chronic venous hypertension (idiopathic) with ulcer of left lower extremity (CODE) ([facility] V24, [facility] V28) (Primary Dx); Non-pressure chronic ulcer of other part of left lower leg with fat layer exposed ([facility] V24, [facility] V28) from Last 3 Months Surgical History Surgery Date Site/Laterality Comments TOTAL KNEE ARTHROPLASTY Left BACK SURGERY Medical History Medical History Date Comments Asthma Diabetes mellitus ([facility] V24, [facility] V28) Hypertension Arthritis Sarcoidosis Hyperlipidemia [...] Sign Reading Time Taken Comments Blood Pressure 146/78 03/01/2025 2:22 PM EDT Pulse 83 03/01/2025 2:22 PM EDT Temperature 36.3 C (97.4 F) 03/01/2025 2:22 PM EDT Respiratory Rate 20 03/01/2025 2:22 PM EDT Oxygen Saturation 98% 03/01/2025 2:22 PM EDT Inhaled Oxygen Concentration - - Weight 134 kg (295 lb) 01/19/2025 2:55 PM EDT Height 185.4 cm (6' 0.99 ) 01/19/2025 2:55 PM ED T Body Mass Index 38.93 01/19/2025 2:55 PM EDT Plan of Treatment Upcoming Encounters Date Type Department Care Team (Late st Contact Info) Description 03/15/2025 2:15 PM EDT Clinical Support [facility] [address] [place] [phone] Health Maintenance Due Date Last Done Comments Diabetes: Annual GFR (Glomerular Filtration Rate) 1967 Diabetes: Annual Foot Exam 1977 Diabetes: Annual Retina Eye Exam 1977 Hepatitis B Vaccines (1 of 3 - 19+ 3-dose series) 1986 Pneumococcal Vaccine: 50+ Years (2 of 2 - PCV) 05/30/2021 05/30/2020 COVID-19 Vaccine ( season) 2024 07/04/2022, 12/26/2021, 08/13/2021, Additional history exists Cholesterol Screening (Lipid Panel) 09/07/2024 Colorectal Cancer Screening: Colonoscopy 09/07/2024 HIV Screening 09/07/2024 Hepatitis C Screening 09/07/2024 Social Influencers of Health Screening 09/07/2024 Diabetes: Annual Urine Albumin-Creatinine Ratio (uACR) 10/12/2024 Diabetes: Blood Sugar Control Test (HGBA1C) 10/12/2024 Influenza Vaccine (#1) 2025 07/31/2024 Depression Screening 10/12/2025 10/12/2024 DTaP,Tdap,and Td Vaccines [...] (in notes) Care Plan Impaired Tissue Improving(03/2025 2:47 PM EDT) No Abiola Richter RN Patient and Caregiver Understand Wound Care Education Care Plan Impaired Tissue On track( 2:47 PM EDT) Abiola Menendez RN Wound volume breakdown reduced by X% by week 4 Care Plan Impaired Tissue No Abiola Richter RN Wound volume breakdown reduced by X% by week 8 Care Plan Impaired Tissue No Abiola Richter RN Wound volume breakdown reduced by X% by week 12 Care Plan Impaired Tissue No Abiola Richter RN Quit using tobacco (cigarettes, smokeless, etc) Care Plan Education needed on impact of smoking on wound No Wurszt, Abiola E, RN Reduce tobacco use (cigarettes, smokeless, etc) Care Plan Education needed on impact of smoking on wound No Abiola Richter RN Decrease Wound Volume by X% by date (in notes) Care Plan Education needed on impact of smoking on wound No Abiola Richter RN Patient and Caregiver Understand Wound Care Education Care Plan Education needed related to ulceration/compr omised skin integrity. No Abiola Richter RN Procedures Procedure Name Priority Date/Time Associated Diagnosis Comments WOUND CARE PROCEDURE Routine 03/01/2025 2:52 PM EDT Chronic venous hypertension (idiopathic) with ulcer of left lower extremity (CODE) (CMS/HCC V24, CMS/HCC V28) Non-pressure chronic ulcer of other part of left lower leg with fat layer exposed (CMS/HCC V24, CMS/HCC V28) DEBRIDEMENT Routine 03/01/2025 2:15 PM EDT Chronic venous hypertension (idiopathic) with ulcer of left lower extremity (CODE) (CMS/HCC V24, CMS/HCC V28) Non-pressure chronic ulcer of other part of left lower leg with fat layer exposed (CMS/HCC V24, CMS/HCC V28) WOUND CARE PROCEDURE Routine 02/15/2025 2:43 PM EDT Chronic venous hypertension (idiopathic) with ulcer of left lower extremity (CODE) (CMS/HCC V24, CMS/HCC V28) Non-pressure chronic ulcer of other part of left lower leg with fat layer exposed (CMS/HCC V24, CMS/HCC V28) DEBRIDEMENT Routine 02/15/2025 2:15 PM EDT Chronic venous hypertension (idiopathic) with ulcer of left lower extremity (CODE) (CMS/HCC V24, CMS/HCC V28) Non-pressure chronic ulcer of other part of left lower leg with fat layer exposed (CMS/HCC V24, CMS/HCC V28) VAS US DUPLEX LOWER EXT VENOUS INSUFFICIENCY BILATERAL Routine 02/03/2025 7:38 AM EDT Chronic venous hypertension (idiopathic) with ulcer of left lower extremity (CODE) (CMS/HCC V24, CMS/HCC V28) Type 2 diabetes mellitus with other skin ulcer (CODE) (CMS/HCC V24, CMS/HCC V28) Venous stasis ulcer of left calf with varicose veins, unspecified ulcer stage (CMS/HCC V24, CMS/HCC V28) WOUND CARE PROCEDURE Routine 02/01/2025 2:41 PM EDT Chronic venous hypertension (idiopathic) with ulcer of left lower extremity (CODE) (CMS/HCC V24, CMS/HCC V28) Non-pressure chronic ulcer of other part of left lower leg with fat layer exposed (CMS/HCC V24, CMS/HCC V28) DEBRIDEMENT Routine 02/01/2025 2:00 PM EDT Chronic venous hypertension (idiopathic) with ulcer of left lower extremity (CODE) (CMS/HCC V24, CMS/HCC V28) Non-pressure chronic ulcer of other part of left lower leg with fat layer exposed (CMS/HCC V24, CMS/HCC V28) WOUND CARE PROCEDURE Routine 01/18/2025 2:33 PM EDT Chronic venous hypertension (idiopathic) with ulcer of left lower extremity (CODE) (CMS/HCC V24, CMS/HCC V28) Non-pressure chronic ulcer of other part of left lower leg with fat layer exposed (CMS/HCC V24, CMS/HCC V28) DEBRIDEMENT Routine 01/18/2025 2:00 PM EDT Chronic venous hypertension (idiopathic) with ulcer of left lower extremity (CODE) (CMS/HCC V24, CMS/HCC V28) Non-pressure chronic ulcer of other part of left lower leg with fat layer exposed (CMS/HCC V24, CMS/HCC V28) WOUND CARE PROCEDURE Routine 01/04/2025 2:19 PM EDT Chronic venous hypertension (idiopathic) with ulcer of left lower extremity (CODE) (CMS/HCC V24, CMS/HCC V28) Non-pressure chronic ulcer of other part of left lower leg with fat layer exposed (CMS/HCC V24, CMS/HCC V28) WOUND CARE PROCEDURE Routine 12/07/2024 3:26 PM EDT Chronic venous hypertension (idiopathic) with ulcer of left lower extremity (CODE) (CMS/HCC V24, CMS/HCC V28) Non-pressure chronic ulcer of other part of left lower leg with fat layer exposed (CMS/HCC V24, CMS/HCC V28) DEBRIDEMENT Routine 12/07/2024 2:45 PM EDT Chronic venous hypertension (idiopathic) with ulcer of left lower extremity (CODE) (CMS/HCC V24, CMS/HCC V28) Non-pressure chronic ulcer of other part of left lower leg with fat layer exposed (CMS/HCC V24, CMS/HCC V28) from Last 3 Months Results * Wound Care Procedure Venous Ulcer Left;Lower;Posterior Leg (03/01/2025 2:52 PM EDT) Angelo Santizo MD - 03/01/2025 2:52 PM EDT FIDELIA Prater 03/01/2025 3:10 PM Wound Care Procedure Venous Ulcer Left;Lower;Posterior Leg Date/Time: 03/01/2025 2:52 PM Performed by: Dorie Varma RN Authorized by: FIDELIA Prater Associated wounds: Wound Venous Ulcer 10/12/24 Leg Left;Lower;Posterior Consent: Consent obtained: Verbal Consent given by: Patient Risks, benefits, and alternatives were discussed: yes Risks discussed: Infection and pain Alternatives discussed: Delayed treatment [place] protocol: Procedure explained and questions answered to patient or proxy's satisfaction: yes Relevant documents present and verified: yes Patient identity confirmed: Verbally with patient Sedation: Sedation type: None Anesthesia: Anesthesia method: None Procedure details: Indications: open wounds Wound location: Leg Leg location: L lower leg Wound age (days): >14 Dressing: Dressing applied: Unna's boot Post-procedure details: Procedure completion: Tolerated us Cy MISTRY IN CLINIC/BEDSIDE ORDERABLE S Final Result * Debridement Venous Ulcer Left;Lower;Posterior Leg (03/01/2025 2:15 PM EDT) Angelo Santizo MD - 03/01/2025 2:15 PM EDT FIDELIA Prater 03/01/2025 3:10 PM Debridement Venous Ulcer Left;Lower;Posterior Leg Performed by: FIDELIA Prater Authorized by: FIDELIA Prater Associated wounds: Wound Venous Ulcer 10/12/24 Leg Left;Lower;Posterior Consent: Consent obtained: Verbal Consent given by: Patient Risks discussed: Yes Time out: Immediately prior to the procedure a time out was called Debridement Details: Performed by: FIDELIA Type: surgical Level: subcutaneous tissue Pain control: Lidocaine 4% Severity of Tissue Pre Debridement: Fat layer exposed Severity of Tissue Post Debridement: Fat layer exposed Time taken: 03/01/2025 2:28 PM Length (cm): 1.8 Width (cm): 1.6 Depth (cm): 0.1 Area (cm^2): 2.88 Time taken: 03/01/2025 2:29 PM Length (cm): 1.8 Width (cm): 1.6 Depth (cm): 0.1 Percent Debrided (%): 100 Surface Area (cm^2): 2.88 Area Debrided (cm^2): 2.88 Volume (cm^3): 0.29 Tissue and other material debrided: dermis, epidermis and subcutaneous tissue Devitalized tissue debrided: biofilm and slough Instrument: Curette Amount of bleeding: none Hemostasis obtained with: Not applicable Procedural pain: 0 Post-procedural pain: 0 Response to treatment: Procedure was tolerated well us Cy MISTRY IN CLINIC/BEDSIDE ORDERABLE S Final Result * Wound Care Procedure Venous Ulcer Left;Lateral;Lower Leg (02/15/2025 2:43 PM EDT) Angelo Santizo MD - 02/15/2025 2:43 PM EDT FIDELIA Prater 02/15/2025 3:03 PM Wound Care Procedure Venous Ulcer Left;Lateral;Lower Leg Date/Time: 02/15/2025 2:43 PM Performed by: Era Cavazos RN Authorized by: FIDELIA Prater Associated wounds: Wound Venous Ulcer 10/12/24 Leg Left;Lateral;Lower Consent: Consent obtained: Verbal Consent given by: Patient Risks, benefits, and alternatives were discussed: yes Risks discussed: Infection and pain Alternatives discussed: Delayed treatment [place] protocol: Procedure explained and questions answered to patient or proxy's satisfaction: yes Relevant documents present and verified: yes Patient identity confirmed: Verbally with patient Sedation: Sedation type: None Anesthesia: Anesthesia method: None Procedure details: Indications: open wounds Wound location: Leg Leg location: L lower leg Wound age (days): >14 Dressing: Dressing applied: Unna's boot Post-procedure details: Procedure completion: Tolerated Cy MISTRY IN CLINIC/BEDSIDE ORDERABLE S Final Result * Debridement Venous Ulcer Left;Lateral;Lower Leg (02/15/2025 2:15 PM EDT) Angelo Santizo MD - 02/15/2025 2:15 PM EDT FIDELIA Prater 02/15/2025 3:03 PM Debridement Venous Ulcer Left;Lateral;Lower Leg Performed by: FIDELIA Prater Authorized by: FIDELIA Prater Associated wounds: Wound Venous Ulcer 10/12/24 Leg Left;Lateral;Lower Consent: Consent obtained: Verbal Consent given by: Patient Risks discussed: Yes Time out: Immediately prior to the procedure a time out was called Debridement Details: Performed by: PA Type: surgical Level: subcutaneous tissue Pain control: Lidocaine 4% Severity of Tissue Pre Debridement: Fat layer exposed Severity of Tissue Post Debridement: Fat layer exposed Time taken: 02/15/2025 2:32 PM Length (cm): 1.8 Width (cm): 1.2 Depth (cm): 0.1 Area (cm^2): 2.16 Time taken: 02/15/2025 2:33 PM Length (cm): 1.8 Width (cm): 1.2 Depth (cm): 0.1 Percent Debrided (%): 75 Surface Area (cm^2): 2.16 Area Debrided (cm^2): 1.62 Volume (cm^3): 0.22 Tissue and other material debrided: dermis, epidermis and subcutaneous tissue Devitalized tissue debrided: biofilm and slough Instrument: Curette Amount of bleeding: none Hemostasis obtained with: Not applicable Procedural pain: 0 Post-procedural pain: 0 Response to treatment: Procedure was tolerated well Cy MISTRY IN CLINIC/BEDSIDE ORDERABLE S Final Result * Vascular US duplex lower extremity venous insufficiency bilateral (02/03/2025 7:38 AM EDT) Left GSK agnes 0.31 cm CV VAS LAB Left GSMT agnes 0.25 cm CV VAS LAB Left GSPC agnes 0.27 cm CV VAS LAB Left GSPT agnes 0.35 cm CV VAS LAB Left SFJ Diameter 0.82 cm CV VAS LAB Left SSMC agnes 0.25 cm CV VAS LAB Left SSPC agnes 0.47 cm CV VAS LAB Right GSK agnes 0.13 cm CV VAS LAB Right GSDC agnes 0.16 cm CV VAS LAB Right GSMT agnes 0.20 cm CV VAS LAB Right GSPC agnes 0.16 cm CV VAS LAB Right GSPT agnes 0.26 cm CV VAS LAB Right SFJ Diameter 0.79 cm CV VAS LAB Right SSMC agnes 0.23 cm CV VAS LAB Right SSPC agnes 0.29 cm CV VAS LAB Anatomical Region Laterality Modality Vascular, Abdomen Ultrasound Narrative 02/03/2025 2:14 PM EDT Right No right deep vein thrombosis. Right deep veins are competent. Right superficial veins have no thrombosis. Right GSV has no significant reflux. Right SSV has no significant reflux. Subcutaneous edema noted Left No left deep vein thrombosis. Left deep veins are competent. Left superficial veins have no thrombosis. Left GSV has no significant reflux. Left SSV has no significant reflux. A small branch in left upper calf has reflux. Right Lower Venous No evidence of deep vein thrombosis in the common femoral, deep femoral, proximal femoral, mid femoral, distal femoral, popliteal, greater saphenous, small saphenous, posterior tibial and peroneal veins of the right leg. The vessels showed compressibility. Interrogation showed phasic and spontaneous Doppler signals. Right Venous Insufficiency Duplex The exam was performed with the patient in reverse Trendelenburg. Left Lower Venous No evidence of deep vein thrombosis in the common femoral, deep femoral, proximal femoral, mid femoral, distal femoral, popliteal, greater saphenous, small saphenous veins, and the tibial/peroneal trunk of the left leg. The vessels showed compressibility. Interrogation showed phasic and spontaneous Doppler signals. The left greater saphenous vein in the distal calf was not visualized due to a bandage. Left Venous Insufficiency Duplex The exam was performed with the patient in reverse trendelenburg. Refluxing left greater saphenous branch: 0.23cm diameter upper calf= 4390ms Spray Operator Details A petit scale, color and doppler analysis ultrasound was performed. During the study longitudinal and transverse views were obtained. Pulsed wave doppler was performed. us Jef Mcclendon MD CV VASCULAR PROCEDURES Final Re sult * Wound Care Procedure Venous Ulcer Left;Lateral;Lower Leg (02/01/2025 2:41 PM EDT) Angelo Santizo MD - 02/01/2025 2:41 PM EDT FIDELIA Prater 02/01/2025 2:53 PM Wound Care Procedure Venous Ulcer Left;Lateral;Lower Leg Date/Time: 02/01/2025 2:41 PM Performed by: Era Cavazos RN Authorized by: FIDELIA Prater Associated wounds: Wound Venous Ulcer 10/12/24 Leg Left;Lateral;Lower Consent: Consent obtained: Verbal Consent given by: Patient Risks, benefits, and alternatives were discussed: yes Risks discussed: Pain Alternatives discussed: Delayed treatment [place] protocol: Procedure explained and questions answered to patient or proxy's satisfaction: yes Relevant documents present and verified: yes Test results available: yes Imaging studies available: yes Patient identity confirmed: Verbally with patient Sedation: Sedation type: None Anesthesia: Anesthesia method: None Procedure details: Indications: open wounds Wound location: Leg Leg location: L lower leg Wound age (days): >14 Dressing: Dressing applied: Unna's boot Post-procedure details: Procedure completion: Tolerated Cy MISTRY IN CLINIC/BEDSIDE ORDERABLE S Final Result * Debridement Venous Ulcer Left;Lateral;Lower Leg (02/01/2025 2:00 PM EDT) Angelo Santizo MD - 02/01/2025 2:00 PM EDT FIDELIA Prater 02/01/2025 2:53 PM Debridement Venous Ulcer Left;Lateral;Lower Leg Performed by: FIDELIA Prater Authorized by: FIDELIA Prater Associated wounds: Wound Venous Ulcer 10/12/24 Leg Left;Lateral;Lower Consent: Consent obtained: Verbal Consent given by: Patient Risks discussed: Yes Time out: Immediately prior to the procedure a time out was called Debridement Details: Performed by: FIDELIA Type: surgical Level: subcutaneous tissue Pain control: Lidocaine 4% Severity of Tissue Pre Debridement: Fat layer exposed Severity of Tissue Post Debridement: Fat layer exposed Time taken: 02/01/2025 2:16 PM Length (cm): 2 Width (cm): 2.2 Depth (cm): 0.1 Area (cm^2): 4.4 Time taken: 02/01/2025 2:17 PM Length (cm): 2 Width (cm): 2.2 Depth (cm): 0.1 Percent Debrided (%): 100 Surface Area (cm^2): 4.4 Area Debrided (cm^2): 4.4 Volume (cm^3): 0.44 Tissue and other material debrided: dermis, epidermis and subcutaneous tissue Devitalized tissue debrided: biofilm and slough Instrument: Curette Amount of bleeding: none Hemostasis obtained with: Not applicable Procedural pain: 0 Post-procedural pain: 0 Response to treatment: Procedure was tolerated well us Cy MISTRY IN CLINIC/BEDSIDE ORDERABLE S Final Result * Wound Care Procedure Venous Ulcer Left;Lateral;Lower Leg (01/18/2025 2:33 PM EDT) Angelo Santizo MD - 01/18/2025 2:33 PM EDT FIDELIA Prater 01/18/2025 2:37 PM Wound Care Procedure Venous Ulcer Left;Lateral;Lower Leg Date/Time: 01/18/2025 2:33 PM Performed by: Era Cavazos RN Authorized by: FIDELIA Prater Associated wounds: Wound Venous Ulcer 10/12/24 Leg Left;Lateral;Lower Consent: Consent obtained: Verbal Consent given by: Patient Risks, benefits, and alternatives were discussed: yes Risks discussed: Pain Alternatives discussed: Delayed treatment [place] protocol: Procedure explained and questions answered to patient or proxy's satisfaction: yes Relevant documents present and verified: yes Test results available: yes Imaging studies available: yes Patient identity confirmed: Verbally with patient Sedation: Sedation type: None Anesthesia: Anesthesia method: None Procedure details: Indications: open wounds Wound location: Leg Leg location: L lower leg Wound age (days): >14 Dressing: Dressing applied: Unna's boot Post-procedure details: Procedure completion: Tolerated us Cy MISTRY IN CLINIC/BEDSIDE ORDERABLE S Final Result * Debridement Venous Ulcer Left;Lateral;Lower Leg (01/18/2025 2:00 PM EDT) Angelo Santizo MD - 01/18/2025 2:00 PM EDT FIDELIA Prater 01/18/2025 2:37 PM Debridement Venous Ulcer Left;Lateral;Lower Leg Performed by: FIDELIA Prater Authorized by: FIDELIA Prater Associated wounds: Wound Venous Ulcer 10/12/24 Leg Left;Lateral;Lower Consent: Consent obtained: Verbal Consent given by: Patient Risks discussed: Yes Time out: Immediately prior to the procedure a time out was called Debridement Details: Performed by: PA Type: surgical Level: subcutaneous tissue Pain control: Lidocaine 4% Severity of Tissue Pre Debridement: Fat layer exposed Severity of Tissue Post Debridement: Fat layer exposed Time taken: 01/18/2025 2:19 PM Length (cm): 3 Width (cm): 2.2 Depth (cm): 0.1 Area (cm^2): 6.6 Time taken: 01/18/2025 2:20 PM Length (cm): 3 Width (cm): 2.2 Depth (cm): 0.1 Percent Debrided (%): 100 Surface Area (cm^2): 6.6 Area Debrided (cm^2): 6.6 Volume (cm^3): 0.66 Tissue and other material debrided: dermis, epidermis and subcutaneous tissue Devitalized tissue debrided: biofilm and slough Instrument: Curette Amount of bleeding: none Hemostasis obtained with: Not applicable Procedural pain: 0 Post-procedural pain: 0 Response to treatment: Procedure was tolerated well us Cy MISTRY IN CLINIC/BEDSIDE ORDERABLE S Final Result * Wound Care Procedure Venous Ulcer Left;Lateral;Lower Leg (01/04/2025 2:19 PM EDT) Angelo Santizo MD - 01/04/2025 2:19 PM EDT FIDELIA Prater 01/04/2025 2:34 PM Wound Care Procedure Venous Ulcer Left;Lateral;Lower Leg Date/Time: 01/04/2025 2:19 PM Performed by: Era Cavazos RN Authorized by: FIDELIA Prater Associated wounds: Wound Venous Ulcer 10/12/24 Leg Left;Lateral;Lower Consent: Consent obtained: Verbal Consent given by: Patient Risks, benefits, and alternatives were discussed: yes Risks discussed: Pain Alternatives discussed: Delayed treatment [place] protocol: Procedure explained and questions answered to patient or proxy's satisfaction: yes Relevant documents present and verified: yes Test results available: yes Imaging studies available: yes Patient identity confirmed: Verbally with patient Sedation: Sedation type: None Anesthesia: Anesthesia method: None Procedure details: Indications: open wounds Wound location: Leg Leg location: L lower leg Wound age (days): >14 Dressing: Dressing applied: Unna's boot Post-procedure details: Procedure completion: Tolerated Cy MISTRY IN CLINIC/BEDSIDE ORDERABLE S Final Result * Wound Care Procedure Venous Ulcer Left;Lateral;Lower Leg (12/07/2024 3:26 PM EDT) Angelo Santizo MD - 12/07/2024 3:26 PM EDT FIDELIA Prater 12/07/2024 3:30 PM Wound Care Procedure Venous Ulcer Left;Lateral;Lower Leg Date/Time: 12/07/2024 3:26 PM Performed by: Abiola Richter RN Authorized by: FIDELIA Prater Associated wounds: Wound Venous Ulcer 10/12/24 Leg Left;Lateral;Lower Consent: Consent obtained: Verbal Consent given by: Patient Risks, benefits, and alternatives were discussed: yes Risks discussed: Infection and pain Alternatives discussed: Delayed treatment [place] protocol: Procedure explained and questions answered to patient or proxy's satisfaction: yes Relevant documents present and verified: yes Patient identity confirmed: Verbally with patient Sedation: Sedation type: None Anesthesia: Anesthesia method: None Procedure details: Indications: open wounds Wound location: Leg Leg location: L lower leg Wound age (days): >14 Dressing: Dressing: Coban 2 compression system. Post-procedure details: Procedure completion: Tolerated us Cy MISTRY IN CLINIC/BEDSIDE ORDERABLE S Final Result * Debridement Venous Ulcer Left;Lateral;Lower Leg (12/07/2024 2:45 PM EDT) Angelo Santizo MD - 12/07/2024 2:45 PM EDT FIDELIA Prater 12/07/2024 3:30 PM Debridement Venous Ulcer Left;Lateral;Lower Leg Performed by: FIDELIA Prater Authorized by: FIDELIA Prater Associated wounds: Wound Venous Ulcer 10/12/24 Leg Left;Lateral;Lower Consent: Consent obtained: Verbal Consent given by: Patient Risks discussed: Yes Time out: Immediately prior to the procedure a time out was called Debridement Details: Performed by: PA Type: surgical Level: subcutaneous tissue Pain control: Lidocaine 4% Severity of Tissue Pre Debridement: Fat layer exposed Severity of Tissue Post Debridement: Fat layer exposed Time taken: 12/07/2024 2:58 PM Length (cm): 3.9 Width (cm): 3.7 Depth (cm): 0.1 Area (cm^2): 14.43 Time taken: 12/07/2024 2:59 PM Length (cm): 3.9 Width (cm): 3.7 Depth (cm): 0.1 Percent Debrided (%): 100 Surface Area (cm^2): 14.43 Area Debrided (cm^2): 14.43 Volume (cm^3): 1.44 Tissue and other material debrided: dermis, epidermis and subcutaneous tissue Devitalized tissue debrided: biofilm and slough Instrument: Curette Amount of bleeding: none Hemostasis obtained with: Not applicable Procedural pain: 0 Post-procedural pain: 0 Response to treatment: Procedure was tolerated well Cy MISTRY IN CLINIC/BEDSIDE ORDERABLE S Final Result from Last 3 Months Additional Health Concerns Active Problems Noted Date Diagnosed Date Impaired Tissue 10/13/2024 Education needed on impact of smoking on wound 0 10/13/2024 Education needed related to ulceration/compromised skin integrity. 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
[2025-03-07 13:28] LABS: Hemoglobin A1C 287.8565 umol/L; Total Hemoglobin (HGBA1C) 3582.5351 umol/L
[2025-03-07 13:41] LABS: Alanine Aminotransferase 17 U/L (0-40); Albumin Level 4.3 g/dL (3.5-5.0); Alkaline Phosphatase 101 U/L (39-117); Anion Gap 10 (12-20); Aspartate Amino Transferase 21 U/L (5-37); Blood Urea Nitrogen 9 mg/dL (9-16); Calcium 9.3 mg/dL (8.4-10.2); Carbon Dioxide 33 mmol/L (22-29); Chloride 101 mmol/L (96-108); Estimated Glomerular Filt Rate > 60; Potassium 3.8 mmol/L (3.3-5.1); Sodium 140 mmol/L (135-145); Total Protein 7.8 g/dL (6.5-8.0)
== END 2025-03-07 11:12 | disposition home or self-care (01) ==
LOC: HO.10HDL 11:11
PROVIDERS: Visit Provider Internal Medicine
DX: E11.65 Type 2 diabetes mellitus with hyperglycemia (principal); I10 Essential (primary) hypertension; I73.9 Peripheral vascular disease, unspecified; M16.0 Bilateral primary osteoarthritis of hip; R80.8 Other proteinuria
CPT/HCPCS: 36415; 80053; 83036